=== PATIENT | female | born 1975 | race Caucasian/White ===

== ENCOUNTER 2018-09-22 14:53 | Inpatient (IN) | payer BC ==
[2018-09-23] MEDS ORDERED: Sodium Chloride 0.9% 10 ML FLUSH Syringe IV PRN (10:00)
[2018-09-23 10:30] LABS: BLOOD UREA NITROGEN 7 mg/dL (7-17); CHLORIDE 92 mmol/L (98-107); Creatinine 1 0.63 mg/dL (0.52-1.04); Glucose 88 mg/dL (74-106); SODIUM 137 mmol/L (137-145)
[2018-09-23 10:44] LABS: Carbon Dioxide 38 mmol/L (22-30)
[2018-09-23 10:47] LABS: Potassium 2.3 mmol/L (3.5-5.1)
[2018-09-23 10:48] LABS: ANION GAP 9.3 MEQ/L (5-15)
[2018-09-23] MEDS ORDERED: Sodium Chloride 0.9% 500 ML 500 ML IV SCH (11:00)
[2018-09-23] MEDS: POTASSIUM CHLORIDE 20 mEq IN WATER 100ML 100 ML IV SCH ×2 (11:10→13:12)
[2018-09-23] MEDS ORDERED: Naprosyn 500 MG PO PRN (12:15)
[2018-09-23] MEDS ORDERED: Nitrostat 0.4 MG Tablet SL PRN (12:15)
[2018-09-23] MEDS ORDERED: ZOFRAN ODT 4 MG PO PRN (12:15)
[2018-09-23] MEDS ORDERED: Ventolin Hfa MDI IH PRN (12:15)
[2018-09-23] MEDS ORDERED: PROVENTIL COMMON CANISTER IH PRN (12:42)
[2018-09-23] MEDS: Sodium Chloride 0.9% 10 ML FLUSH Syringe IV SCH ×2 (15:30→20:23)
--- NOTE | 2018-09-23 17:55 | PCM.HP ---
History of Present Illness - Chief Complaint Chief Complaint: hypokalemia History of Present Illness: is a 43 year old female pt of mine from [facility] with complicated PMHx including idiopathic peripheral neuropathy, Gregoria's thyroiditis, chronic back pain with pain stimulator implant, migraine MAYER, psychiatric issues, and chronic vomiting and diarrhea who came in for direct admission due to hypokalemia. On outpatient labs yesterday she was found to have low potassium and was advised to come in for repletion. I advised she should come in [facility] and she was supposed to come yesterday evening but she did not come until this morning. Potassium was 2.3. She was given a 40 mEq K-rider and her follow up potassium is 3.1. On 09/08/18 she was at [facility] and found to have K+ of 2.39 - was repleted and sent home on prescription potassium and magnesium. She ran out of the potassium a few weeks ago and was taking OTC potassium since then. She had a CT abd/pelvis that was negative for mass. Had fatty infiltration of the colon and recommended colonoscopy. They sent her home for OP f/u. She was referred to an horizontal resaw operator by her senior water/wastewater engineer, [employer] Rochelle Fajardo for her multiple medical issues. She has a history of vomiting up to 15-20x/day in the past 2-3 months, even with sips of liquid or taking her meds. She has lost about 20 lb. Also c/o "constant" diarrhea. She also has elham-umbilical abd pain. Does c/o bright and dark blood in the stool. Her last EGD and colonoscopy were done 2 years ago at [facility]. She also c/o syncope recently, most recently 2 nights ago when she got up and her found her on the kitchen floor. She apparently has not had any workup done for this yet. - Review of Systems Respiratory: Cough Cardiac: Edema (LE bilat) Abdominal/Gastrointestinal: Abdominal Pain, Nausea, Vomiting, Diarrhea, Hematochezia, Melena Musculoskeletal: Arthralgias, Back Pain Neurological: Parasthesia Psychological: Anxiety, Depression, No Suicidal Ideations All Other Systems: Reviewed and Negative Medications & Allergies Home Medications: Home Medication List Albuterol Sulfate [Ventolin Hfa] 18 gm IH Q4H PRN PRN 06/03/15 [History Confirmed 09/23/18] Magnesium Oxide 400 mg [Mag-Ox 400] 400 mg PO BID 06/03/15 [History Confirmed 09/23/18] Metoprolol Tartrate 25 mg PO BID 06/03/15 [History Confirmed 09/23/18] Multivit,Calc,Mins/Iron/Folic [Women's Daily Caplet] 1 each PO DAILY 06/03/15 [ History Confirmed 09/23/18] Naproxen 500 mg PO BID PRN 06/03/15 [History Confirmed 09/23/18] Nitroglycerin 0.4 mg Tablet [Nitrostat 0.4 MG Tablet] 0.4 mg SL DAILY PRN PRN 06/03/15 [History Confirmed 09/23/18] Potassium Chloride 20 Meq [Klor-Con 20 MEQ] 20 meq PO BID 06/03/15 [History Confirmed 09/23/18] Vitamin B Complex Vit C No.3 [B Complex with Vitamin C] 1 each PO DAILY [History Confirmed 09/23/18] Alprazolam 0.5 mg PO DAILY 11/10/15 [History Confirmed 09/23/18] Duloxetine HCl 30 mg [Cymbalta 30 MG Capsule] 30 mg PO DAILY 11/10/15 [ History Confirmed 09/23/18] Levothyroxine Sodium 50 Mcg [Synthroid 50 Mcg] 50 mcg PO DAILY 11/10/15 [ History Confirmed 09/23/18] Cephalexin Mh 500 mg [Keflex 500 mg] 500 mg PO BID 09/23/18 [History Confirmed 09/23/18] Dicyclomine HCl 20 mg [Bentyl 20 mg] 20 mg PO BID 09/23/18 [History Confirmed 09/23/18] Ondansetron ODT 4 MG [Zofran Odt 4 mg] 4 mg PO Q6H PRN PRN 09/23/18 [ History Confirmed 09/23/18] Allergies/Adverse Reactions: Allergies Allergy/AdvReac Type Severity Reaction Status Date / Time gabapentin Allergy Severe Verified 09/23/18 10:36 pregabalin [From Lyrica] Allergy Severe Verified 09/23/18 10:37 - Past Medical History Past Medical History: Yes Neurological History: No Pertinent History, Migraines, Peripheral Neuropathy ENT History: No Pertinent History Cardiac History: Hypertension, Other Respiratory History: Asthma Endocrine Medical History: No Pertinent History Musculoskelatal History: No Pertinent History GI Medical History: Gallbladder Disease, Ulcer History: No Pertinent History Pyscho-Social History: Anxiety Reproductive Disorders: No Pertinent History Comment: heart cath in 2014 "weakened heart muscles, IBS UTI, Nodules on lung, anemia, low potassium - Female History Are you now?: No - Past Surgical History Past Surgical History: Yes Neuro Surgical History: No Pertinent History Cardiac History: Cardiac Catheterization GI Surgical History: No Pertinent History Genitourinary Surgical Hx: No Pertinent History Musculskeletal Surgical Hx: No Pertinent History Female Surgical History: Tubal Ligation Other Surgical History: cervical CA 95, 06, tubal and ablation 2011 - Social History Smoking Status: Current every day smoker How long have you smoked: 35 Exposure to second hand smoke: Yes Alcohol: Weekly Drug Use: none - Physical Exam Vital Signs: Vital Signs - 24 hr Temp Pulse Resp BP Pulse Ox 09/23/18 17:32 98 F 09/23/18 13:34 98 F 78 18 108/64 95 09/23/18 10:24 98.3 F 94 H 20 109/84 96 09/23/18 10:03 98.3 F 94 H 20 109/84 96 General Appearance: no apparent distress, alert Neurologic Exam: oriented x 3, cooperative Eye Exam: eyes nml inspection Ears, Nose, Throat Exam: moist mucous membranes Neck Exam: normal inspection, non-tender, No lymphadenopathy Respiratory Exam: normal breath sounds, lungs clear, No crackles/rales, No rhonchi, No wheezing Cardiovascular Exam: regular rate/rhythm, normal heart sounds, No murmur Gastrointestinal/Abdomen Exam: soft, normal bowel sounds, tenderness ( generalized, worst in suprapubic/RLQ), No distention, No mass, No guarding, No rebound Back Exam: normal inspection, No rash Extremity Exam: No pedal edema, No swelling Skin Exam: normal color, warm, dry, No rash Results - Labs Lab/Micro Results: Lab Results-Last 24 Hours 09/23/18 09/23/18 Range/Units 10:10 17:28 Sodium 137 (137-145) mmol/L Potassium 2.3 L* 3.1 L D (3.5-5.1) mmol/L Chloride 92 L (98-107) mmol/L Carbon Dioxide 38 H (22-30) mmol/L Anion Gap 9.3 (5-15) MEQ/L BUN 7 (7-17) mg/dL Creatinine 0.63 (0.52-1.04) mg/dL Estimated GFR > 60.0 ML/MIN Glucose 88 (74-106) mg/dL Calcium 8.0 L (8.4-10.2) mg/dL Magnesium 1.7 (1.6-2.3) mg/dL - Other Procedures and Tests Respiratory Therapy 09/23/18 10:49 Smoking Cessation Education ONCE Assessment/Plan (1) Hypokalemia Current Visit: Yes Status: Acute Onset Date: ~09/23/18 Assessment & Plan: acute on chronic. Better, but will replete with IV potassium as she will be getting a colon prep tomorrow. recheck Mg post Code(s): E87.6 - HYPOKALEMIA (2) Syncope Current Visit: Yes Status: Acute Qualifiers: Encounter type: initial encounter Assessment & Plan: will start with echo and carotid dopplers if she has not had in the past 6 mo ( for echo; 12 mo for carotid dopplers). Can't have MRi of the brain due to stimulator. Will order CT brain w/ and w/o contrast. Code(s): R55 - SYNCOPE AND COLLAPSE (3) Idiopathic peripheral neuropathy Current Visit: Yes Status: Chronic Code(s): G60.9 - HEREDITARY AND IDIOPATHIC NEUROPATHY, UNSPECIFIED (4) HTN (hypertension) Current Visit: Yes Status: Chronic Qualifiers: Hypertension type: essential hypertension Qualified Code(s): I10 - Essential (primary) hypertension Code(s): I10 - ESSENTIAL (PRIMARY) HYPERTENSION (5) Migraine Current Visit: Yes Status: Chronic Qualifiers: Migraine type: unspecified Status migrainosus presence: without status migrainosus Intractability: not intractable Qualified Code(s): G43.909 - Migraine, unspecified, not intractable, without status migrainosus Code(s): G43.909 - MIGRAINE, UNSP, NOT INTRACTABLE, WITHOUT STATUS MIGRAINOSUS (6) Tobacco use Current Visit: Yes Status: Chronic Assessment & Plan: nicoderm patch today Code(s): Z72.0 - TOBACCO USE (7) Chronic back pain Current Visit: Yes Status: Chronic Qualifiers: Back pain location: back pain in unspecified location Back pain laterality : unspecified Qualified Code(s): M54.9 - Dorsalgia, unspecified; G89.29 - Other chronic pain Code(s): M54.9 - DORSALGIA, UNSPECIFIED; G89.29 - OTHER CHRONIC PAIN (8) Depression Current Visit: Yes Status: Chronic Qualifiers: Depression Type: unspecified Qualified Code(s): F32.9 - Major depressive disorder, single episode, unspecified Code(s): F32.9 - MAJOR DEPRESSIVE DISORDER, SINGLE EPISODE, UNSPECIFIED (9) Hypothyroid Current Visit: Yes Status: Chronic Qualifiers: Hypothyroidism type: due to Gregoria's thyroiditis Qualified Code(s): E03.8 - Other specified hypothyroidism; E06.3 - Autoimmune thyroiditis Code(s): E03.9 - HYPOTHYROIDISM, UNSPECIFIED (10) Vomiting Current Visit: Yes Status: Acute Qualifiers: Vomiting type: unspecified Nausea presence: with nausea Assessment & Plan: EGD Code(s): R11.10 - VOMITING, UNSPECIFIED (11) Diarrhea Current Visit: Yes Status: Acute Qualifiers: Diarrhea type: unspecified type Qualified Code(s): R19.7 - Diarrhea, unspecified Assessment & Plan: stool studies and colonoscopy Code(s): R19.7 - DIARRHEA, UNSPECIFIED
[2018-09-23] MEDS ORDERED: POTASSIUM CHLORIDE 20 mEq IN WATER 100ML 20 MEQ/100 ML BAG IV ONE (18:06)
[2018-09-23] MEDS: NICODERM CQ 14 MG TOP SCH (18:14)
[2018-09-23] MEDS: BENTYL 20 MG PO SCH (20:19)
[2018-09-23] MEDS: Lopressor 25MG Tab PO SCH (20:19)
[2018-09-23] MEDS: KEFLEX 500 MG PO SCH (20:19)
[2018-09-23] MEDS: Klor Con 10 MEQ PO SCH (20:20)
[2018-09-23] MEDS: MAG-OX 400 PO SCH (20:20)
[2018-09-23] MEDS: Cymbalta 30 MG Capsule PO SCH (20:46)
[2018-09-23] MEDS: Desyrel 150 MG PO SCH (20:46)
[2018-09-23] MEDS: ULTRAM 50 MG PO PRN (20:47)
[2018-09-23] MEDS: XANAX 1 MG PO PRN (20:47)
[2018-09-23] MEDS ORDERED: BENTYL 20 MG PO SCH (22:00)
[2018-09-23] MEDS ORDERED: KEFLEX 500 MG PO SCH (22:00)
[2018-09-23] MEDS ORDERED: NON-FORMULARY ITEM (Potassium Chloride 20 Meq [Klor-Con 20 Meq] 20 MEQ) PO SCH (22:00)
[2018-09-23] MEDS ORDERED: Cymbalta 30 MG Capsule PO SCH (22:00)
[2018-09-23 22:31] LABS: Appearance CLOUDY (CLEAR); Bilirubin NEGATIVE (NEGATIVE); Blood SMALL Ery/ul (0-5); Glucose NEGATIVE (NEGATIVE); Ketones NEGATIVE (NEGATIVE); Leukocyte Esterase SMALL (NEGATIVE); Nitrite NEGATIVE (NEGATIVE); Protein,Urine Dip NEGATIVE (Negative); Specific Gravity 1.005 (1.005-1.025); Urobilinogen 4 mg/dL (0-1)
[2018-09-23] MEDS ORDERED: Klor Con 10 MEQ PO ONE (23:20)
[2018-09-23] MEDS: Sodium Chloride 0.9% W/ 20 mEq KCl/LITER 1,000 ML IV SCH (23:38)
[2018-09-24 05:27] LABS: BASOPHIL % 0.7 % (0.0-0.4); Basophil (Absolute #) 0.03 (0-0.4); Eosinophil % 1.1 % (0.00-5.0); Eosinophil (Absolute #) 0.05 (0-0.5); Granulocyte Absolute (ANC) 1.73 (1.4-6.9); Granulocytes % 39.6 % (36.0-66.0); Hematocrit 30.2 % (35-47); Hemoglobin 10.1 gm/dl (12.0-16.0); Lymphocyte (Absolute #) 2.21 (1.0-4.6); Lymphocytes % 50.6 % (24.0-44.0); Mean Cell Volume 105.2 fl (78-100); Mean Corpuscular Hgb Concent. 33.4 g/dl (32-36); Monocyte (Absolute #) 0.35 (0.0-1.3); Platelet Count 195 K/mm3 (150-450); Red Blood Count 2.87 M/mm3 (4.1-5.4); Red Cell Distribution Width 11.9 % (11.5-14.0); White Blood Count 4.4 K/mm3 (4.0-10.5)
[2018-09-24 05:31] LABS: Mean Corpuscular Hemoglobin 35.1 pg (26-32)
[2018-09-24 05:46] LABS: ALKALINE PHOSPHATASE 137 U/L (38-126); BLOOD UREA NITROGEN 4 mg/dL (7-17); CHLORIDE 101 mmol/L (98-107); Calcium 7.4 mg/dL (8.4-10.2); Carbon Dioxide 34 mmol/L (22-30); Creatinine 1 0.55 mg/dL (0.52-1.04); Glucose 94 mg/dL (74-106); Potassium 3.3 mmol/L (3.5-5.1); SGOT/AST 111 U/L (14-36); SGPT/ALT 43 U/L (0-35); SODIUM 136 mmol/L (137-145); Total Protein 4.6 g/dL (6.3-8.2)
[2018-09-24] MEDS: Sodium Chloride 0.9% 10 ML FLUSH Syringe IV SCH ×3 (05:48→22:05)
--- NOTE | 2018-09-24 08:57 | PCM.NOTE ---
Date and Time: 09/24/18 0854 Subjective Assessment: Pt is feeling better. No vomiting since admission but did have diarrhea. her K + this a.m. was 3.3. Mendy po. - Review of Systems Constitutional: No Fever Abdominal/Gastrointestinal: Diarrhea, No Vomiting Objective Exam General Appearance: no apparent distress, alert Neurologic Exam: oriented x 3, cooperative Skin Exam: normal color, warm, dry, No rash Ears, Nose, Throat Exam: moist mucous membranes Neck Exam: normal inspection Respiratory Exam: normal breath sounds, lungs clear, No crackles/rales, No rhonchi, No wheezing Cardiovascular Exam: regular rate/rhythm, normal heart sounds, No murmur Gastrointestinal/Abdomen Exam: soft, normal bowel sounds, No tenderness, No distention, No mass, No guarding, No rebound OBJECTIVE DATA Vital Signs: Vital Signs - 24 hr Temp Pulse Resp BP Pulse Ox 09/24/18 07:32 96 09/24/18 07:00 98 F 87 18 110/65 95 09/24/18 04:00 16 09/24/18 03:00 98.1 F 78 12 108/58 91 L 09/24/18 00:00 18 09/23/18 23:00 98.3 F 74 18 115/69 94 L 09/23/18 21:06 97 09/23/18 21:01 93 H 18 97 09/23/18 20:00 18 09/23/18 19:31 98.3 F 82 18 109/76 96 09/23/18 18:02 90 16 96 09/23/18 17:32 98 F 09/23/18 13:34 98 F 78 18 108/64 95 09/23/18 10:24 98.3 F 94 H 20 109/84 96 09/23/18 10:03 98.3 F 94 H 20 109/84 96 Pain Assessment - Last Documented Pain Intensity 2 Pain Scale Used 0-10 Pain Scale Intake and Output: Intake & Output 09/21/18 09/22/18 09/23/18 09/24/18 11:59 11:59 11:59 11:59 Intake Total 1838 Output Total 1800 Balance 38 Weight 54.1 kg Lab Results: Lab Results-Last 24 Hours 09/23/18 09/23/18 09/23/18 Range/Units 10:10 17:25 17:28 WBC (4.0-10.5) K/mm3 RBC (4.1-5.4) M/mm3 Hgb (12.0-16.0) gm/dl Hct (35-47) % MCV (78-100) fl MCH (26-32) pg MCHC (32-36) g/dl RDW (11.5-14.0) % Plt Count (150-450) K/mm3 MPV (6-9.5) fl Gran % (36.0-66.0) % Eos # (Auto) (0-0.5) Absolute Lymphs (auto) (1.0-4.6) Absolute Monos (auto) (0.0-1.3) Lymphocytes % (24.0-44.0) % Monocytes % (0.0-12.0) % Eosinophils % (0.00-5.0) % Basophils % (0.0-0.4) % Absolute Granulocytes (1.4-6.9) Basophils # (0-0.4) Sodium 137 (137-145) mmol/L Potassium 2.3 L* 3.1 L D (3.5-5.1) mmol/L Chloride 92 L (98-107) mmol/L Carbon Dioxide 38 H (22-30) mmol/L Anion Gap 9.3 (5-15) MEQ/L BUN 7 (7-17) mg/dL Creatinine 0.63 (0.52-1.04) mg/dL Estimated GFR > 60.0 ML/MIN Glucose 88 (74-106) mg/dL Calcium 8.0 L (8.4-10.2) mg/dL Magnesium 1.7 1.7 (1.6-2.3) mg/dL Total Bilirubin (0.2-1.3) mg/dL AST (14-36) U/L ALT (0-35) U/L Alkaline Phosphatase (38-126) U/L Serum Total Protein (6.3-8.2) g/dL Albumin (3.5-5.0) g/dL Urine Color (YELLOW) Urine Appearance (CLEAR) Urine pH (5-6) Ur Specific [place] (1.005-1.025) Urine Protein (Negative) Urine Ketones (NEGATIVE) Urine Blood (0-5) Chris/ul Urine Nitrite (NEGATIVE) Urine Bilirubin (NEGATIVE) Urine Urobilinogen (0-1) mg/dL Ur Leukocyte Esterase (NEGATIVE) Urine WBC (Auto) (0-5) /HPF Urine RBC (Auto) (0-2) /HPF U Epithel Cells (Auto) (FEW) /HPF Urine Bacteria (Auto) (NEGATIVE) /HPF Other Casts (Auto) (NEGATIVE) /LPF Urine Culture Reflexed (NO) Urine Glucose (NEGATIVE) mg/dL 09/23/18 09/23/18 09/24/18 Range/Units 21:45 22:45 05:06 WBC 4.4 (4.0-10.5) K/mm3 RBC 2.87 L (4.1-5.4) M/mm3 Hgb 10.1 L (12.0-16.0) gm/dl Hct 30.2 L (35-47) % MCV 105.2 H (78-100) fl MCH 35.1 H (26-32) pg MCHC 33.4 (32-36) g/dl RDW 11.9 (11.5-14.0) % Plt Count 195 (150-450) K/mm3 MPV 10.0 H (6-9.5) fl Gran % 39.6 (36.0-66.0) % Eos # (Auto) 0.05 (0-0.5) Absolute Lymphs (auto) 2.21 (1.0-4.6) Absolute Monos (auto) 0.35 (0.0-1.3) Lymphocytes % 50.6 H (24.0-44.0) % Monocytes % 8.0 (0.0-12.0) % Eosinophils % 1.1 (0.00-5.0) % Basophils % 0.7 (0.0-0.4) % Absolute Granulocytes 1.73 (1.4-6.9) Basophils # 0.03 (0-0.4) Sodium (137-145) mmol/L Potassium 3.1 L (3.5-5.1) mmol/L Chloride (98-107) mmol/L Carbon Dioxide (22-30) mmol/L Anion Gap (5-15) MEQ/L BUN (7-17) mg/dL Creatinine (0.52-1.04) mg/dL Estimated GFR ML/MIN Glucose (74-106) mg/dL Calcium (8.4-10.2) mg/dL Magnesium (1.6-2.3) mg/dL Total Bilirubin (0.2-1.3) mg/dL AST (14-36) U/L ALT (0-35) U/L Alkaline Phosphatase (38-126) U/L Serum Total Protein (6.3-8.2) g/dL Albumin (3.5-5.0) g/dL Urine Color YELLOW (YELLOW) Urine Appearance CLOUDY (CLEAR) Urine pH 7.0 (5-6) Ur Specific [place] 1.005 (1.005-1.025) Urine Protein NEGATIVE (Negative) Urine Ketones NEGATIVE (NEGATIVE) Urine Blood SMALL (0-5) Chris/ul Urine Nitrite NEGATIVE (NEGATIVE) Urine Bilirubin NEGATIVE (NEGATIVE) Urine Urobilinogen 4 (0-1) mg/dL Ur Leukocyte Esterase SMALL (NEGATIVE) Urine WBC (Auto) 26-50 (0-5) /HPF Urine RBC (Auto) 11-15 (0-2) /HPF U Epithel Cells (Auto) MODERATE (FEW) /HPF Urine Bacteria (Auto) MODERATE (NEGATIVE) /HPF Other Casts (Auto) 2-5 (NEGATIVE) /LPF Urine Culture Reflexed YES (NO) Urine Glucose NEGATIVE (NEGATIVE) mg/dL 09/24/18 09/24/18 Range/Units 05:06 05:06 WBC (4.0-10.5) K/mm3 RBC (4.1-5.4) M/mm3 Hgb (12.0-16.0) gm/dl Hct (35-47) % MCV (78-100) fl MCH (26-32) pg MCHC (32-36) g/dl RDW (11.5-14.0) % Plt Count (150-450) K/mm3 MPV (6-9.5) fl Gran % (36.0-66.0) % Eos # (Auto) (0-0.5) Absolute Lymphs (auto) (1.0-4.6) Absolute Monos (auto) (0.0-1.3) Lymphocytes % (24.0-44.0) % Monocytes % (0.0-12.0) % Eosinophils % (0.00-5.0) % Basophils % (0.0-0.4) % Absolute Granulocytes (1.4-6.9) Basophils # (0-0.4) Sodium 136 L (137-145) mmol/L Potassium 3.3 L (3.5-5.1) mmol/L Chloride 101 (98-107) mmol/L Carbon Dioxide 34 H (22-30) mmol/L Anion Gap 4.0 L (5-15) MEQ/L BUN 4 L (7-17) mg/dL Creatinine 0.55 (0.52-1.04) mg/dL Estimated GFR > 60.0 ML/MIN Glucose 94 (74-106) mg/dL Calcium 7.4 L (8.4-10.2) mg/dL Magnesium 1.8 (1.6-2.3) mg/dL Total Bilirubin 0.80 (0.2-1.3) mg/dL AST 111 H (14-36) U/L ALT 43 H (0-35) U/L Alkaline Phosphatase 137 H (38-126) U/L Serum Total Protein 4.6 L (6.3-8.2) g/dL Albumin 2.0 L (3.5-5.0) g/dL Urine Color (YELLOW) Urine Appearance (CLEAR) Urine pH (5-6) Ur Specific [place] (1.005-1.025) Urine Protein (Negative) Urine Ketones (NEGATIVE) Urine Blood (0-5) Chris/ul Urine Nitrite (NEGATIVE) Urine Bilirubin (NEGATIVE) Urine Urobilinogen (0-1) mg/dL Ur Leukocyte Esterase (NEGATIVE) Urine WBC (Auto) (0-5) /HPF Urine RBC (Auto) (0-2) /HPF U Epithel Cells (Auto) (FEW) /HPF Urine Bacteria (Auto) (NEGATIVE) /HPF Other Casts (Auto) (NEGATIVE) /LPF Urine Culture Reflexed (NO) Urine Glucose (NEGATIVE) mg/dL Radiology Exams: Radiology Procedures Category Date Time Status CAROTID BILATERAL [US] Routine Exams 09/24/18 Ordered ECHO W/2D AND DOPPLER [US] Routine Exams 09/24/18 Ordered HEAD W/WO CONTRAST [CT] Routine Exams 09/24/18 18:06 Ordered Assessment/Plan (1) Hypokalemia Current Visit: Yes Status: Acute Onset Date: ~09/23/18 Assessment & Plan: Improved. Will need new rx when discharged home (for potassium) Code(s): E87.6 - HYPOKALEMIA (2) Syncope Current Visit: Yes Status: Acute Qualifiers: Qualified Code(s): T67.1XXA - Heat syncope, initial encounter Assessment & Plan: Getting head CT, echo,and carotid doppler today. Code(s): R55 - SYNCOPE AND COLLAPSE (3) Idiopathic peripheral neuropathy Current Visit: Yes Status: Chronic Code(s): G60.9 - HEREDITARY AND IDIOPATHIC NEUROPATHY, UNSPECIFIED (4) HTN (hypertension) Current Visit: Yes Status: Chronic Qualifiers: Qualified Code(s): I10 - Essential (primary) hypertension Code(s): I10 - ESSENTIAL (PRIMARY) HYPERTENSION (5) Migraine Current Visit: Yes Status: Chronic Qualifiers: Qualified Code(s): G43.909 - Migraine, unspecified, not intractable, without status migrainosus Code(s): G43.909 - MIGRAINE, UNSP, NOT INTRACTABLE, WITHOUT STATUS MIGRAINOSUS (6) Tobacco use Current Visit: Yes Status: Chronic Code(s): Z72.0 - TOBACCO USE (7) Chronic back pain Current Visit: Yes Status: Chronic Qualifiers: Qualified Code(s): M54.9 - Dorsalgia, unspecified; G89.29 - Other chronic pain Code(s): M54.9 - DORSALGIA, UNSPECIFIED; G89.29 - OTHER CHRONIC PAIN (8) Depression Current Visit: Yes Status: Chronic Qualifiers: Qualified Code(s): F32.9 - Major depressive disorder, single episode, unspecified Code(s): F32.9 - MAJOR DEPRESSIVE DISORDER, SINGLE EPISODE, UNSPECIFIED (9) Hypothyroid Current Visit: Yes Status: Chronic Qualifiers: Qualified Code(s): E03.8 - Other specified hypothyroidism; E06.3 - Autoimmune thyroiditis Code(s): E03.9 - HYPOTHYROIDISM, UNSPECIFIED (10) Vomiting Current Visit: Yes Status: Acute Assessment & Plan: EGD tomorrow with surgery, thank you. Code(s): R11.10 - VOMITING, UNSPECIFIED (11) Diarrhea Current Visit: Yes Status: Acute Qualifiers: Qualified Code(s): R19.7 - Diarrhea, unspecified Assessment & Plan: colonoscopy tomorrow with surgery, thank you. Stool studies ordered. Code(s): R19.7 - DIARRHEA, UNSPECIFIED
[2018-09-24] MEDS: SYNTHROID 100 MCG PO SCH (09:39)
[2018-09-24] MEDS ORDERED: xanAX 0.5 MG PO SCH (10:00)
[2018-09-24] MEDS ORDERED: SYNTHROID 50 MCG PO SCH (10:00)
[2018-09-24] MEDS ORDERED: FLUZONE QUAD (36mo-64yo) 2018-2019 SYRINGE IM ONE (10:00)
--- NOTE | 2018-09-24 10:21 | XRAY ---
Indication: Headache and syncope. Multiple contiguous axial images obtained through the head prior to and following 80 cc Isovue 370 contrast. Comparison: None Ventriculosulcal pattern appears symmetric. No acute intracranial hemorrhage, abnormal extra-axial fluid collection, or mass effect. Following contrast, there is no abnormal enhancing intra or extra-axial mass. Fourth ventricle is midline without hydrocephalus. Garcia white matter differentiation preserved. Bony calvarium intact. Visualized paranasal sinuses and mastoid air cells are clear. Impression: Negative CT head with and without contrast exam. CT DI 71.08
--- NOTE | 2018-09-24 10:35 | XRAY ---
Indication: Syncope. Two-dimensional sonogram and color Doppler imaging of the carotid arteries of the neck performed. Comparison: None Examination of the right carotid circulation demonstrates widely patent common carotid, bulb, internal carotid, and external carotid arteries. PSV of the CCA is 95 cm/s. PSV of the ICA is 112 cm/s. ICA/CCA ratio is 1.2. Normal antegrade vertebral artery flow. Examination of left carotid circulation also demonstrates widely patent common carotid, bulb, internal carotid, and external carotid arteries. PSV of the CCA is 132 cm/s. PSV of the ICA is 118 cm/s. ICA/CCA ratio is 0.9. Normal antegrade vertebral artery flow. Impression: Widely patent left and right carotid arteries of the neck. Velocity measurements and ratios are also negative for hemodynamically significant flow-limiting stenosis.
[2018-09-24] MEDS: Klor Con 10 MEQ PO SCH ×2 (10:46→22:04)
[2018-09-24] MEDS: MAG-OX 400 PO SCH ×2 (10:47→22:05)
[2018-09-24] MEDS: BENTYL 20 MG PO SCH ×2 (10:47→22:03)
[2018-09-24] MEDS: Lopressor 25MG Tab PO SCH ×2 (10:47→22:05)
[2018-09-24] MEDS: KEFLEX 500 MG PO SCH ×2 (10:47→22:04)
[2018-09-24] MEDS: XANAX 1 MG PO PRN ×2 (10:52→22:05)
[2018-09-24] MEDS ORDERED: Golytely Solution 4000 ML PO ONE (14:00)
[2018-09-24] MEDS: Sodium Chloride 0.9% W/ 20 mEq KCl/LITER 1,000 ML IV SCH (16:29)
[2018-09-24] MEDS: NICODERM CQ 14 MG TOP SCH (22:00)
[2018-09-24] MEDS: Desyrel 150 MG PO SCH (22:04)
[2018-09-24] MEDS: Cymbalta 30 MG Capsule PO SCH (22:04)
[2018-09-24] MEDS: ULTRAM 50 MG PO PRN (22:05)
[2018-09-24] MEDS ORDERED: Lactated Ringers 1,000 ML IV SCH (23:30)
[2018-09-25] MEDS: Sodium Chloride 0.9% W/ 20 mEq KCl/LITER 1,000 ML IV SCH (01:13)
[2018-09-25] MEDS: Sodium Chloride 0.9% 10 ML FLUSH Syringe IV SCH ×2 (05:34→17:39)
--- NOTE | 2018-09-25 07:48 | CONS ---
CONSULT DATE: 09/24/2018 HISTORY: The patient is a 43 year-old female who has had nausea, vomiting, diarrhea since June. She had extensive work up in [place]. She reportedly said she had some sludge at one point. I have the report in front of me now. She has not had a HIDA scan. She comes in with some persistent nausea, vomiting and diarrhea. Dr. Blank asked for our group to see her for possible endoscopy. She had a CT scan show no evidence of mass, fatty infiltration of colon wall especially in the right colon, possible inflammatory bowel disease in the differential. Colonoscopy recommended that was done back in August. Ultrasound reportedly showed some sludge, no gallstones. PAST MEDICAL HISTORY: She has had some anxiety, smoker. She has had fatigue. She has history of panic attacks, iron deficiency in the past. PAST SURGICAL HISTORY: She had tubal in the past. She had ablation. She had a cervix procedure in the past. MEDICATIONS: Multivitamins, Bentyl, trazodone, Synthroid, Ventolin for chronic obstructive pulmonary disease, vitamin B12, ferrous sulfate, metoprolol, Nitro PRN, alprazolam, duloxetine, magnesium oxide. ALLERGIES: GABAPENTIN, LYRICA. FAMILY HISTORY: Negative in regards to this problem. SOCIAL HISTORY: Smoker. LAB DATA AND TESTS: Bilirubin 0.8, alkaline phosphatase 137, ALT 43, AST 111. White blood cell count 4.4, hemoglobin 10.1, PLT 195,000. REVIEW OF SYSTEMS: Twelve systems reviewed per admission assessment. No chest pain or palpitations other systems negative or noncontributory as above and per preadmission questionnaire. PHYSICAL EXAMINATION: GENERAL: No acute distress. HEENT: Sclera nonicteric. NECK: No JVD. CHEST: Equal excursion, nonlabored breathing. CVS: Regular rate and rhythm. ABDOMEN: Soft. No peritoneal signs. Nontender on my exam. EXTREMITIES: No significant edema. NEURO: Alert, moving extremities grossly symmetrically. No gross motor deficits noted. IMPRESSION: History of some nausea, vomiting, diarrhea unclear etiology. She did have old fatty infiltration of the colon on CT scan. She does have some sludge on ultrasound of the gallbladder. HIDA was not done. I feel she would benefit from EGD and colonoscopy. She said she has history of ulcers and polyps in the past. She had prior endoscopy by Dr. Earl Garcia in the past. If the upper and lower endoscopy is unremarkable might need to consider HIDA scan for further work up. Either way no emergent surgery necessary. She is given bowel prep today. Dr. Watts is available to do EGD and colonoscopy on her tomorrow. General risk of bleeding or infection, risk of bowel injury or perforation possible requiring open procedure, risk of missed or nondiagnosis or incomplete exam possibly requiring barium enema, other studies or procedures. General risk of anesthesia or sedation but not limited to. PLAN: EGD and colonoscopy tomorrow. If unremarkable consider HIDA scan.
[2018-09-25 09:56] LABS: Hematocrit 30.5 % (35-47); Mean Cell Volume 107.8 fl (78-100); Mean Corpuscular Hemoglobin 35.3 pg (26-32); Mean Corpuscular Hgb Concent. 32.8 g/dl (32-36); Mean Platelet Volume 10.6 fl (6-9.5); Platelet Count 203 K/mm3 (150-450); Red Blood Count 2.83 M/mm3 (4.1-5.4); Red Cell Distribution Width 12.4 % (11.5-14.0); White Blood Count 3.4 K/mm3 (4.0-10.5)
[2018-09-25] MEDS ORDERED: Lactated Ringers 1,000 ML IV SCH (12:00)
[2018-09-25 12:02] LABS: CHLORIDE 110 mmol/L (98-107); Calcium 7.2 mg/dL (8.4-10.2); Carbon Dioxide 27 mmol/L (22-30); Creatinine 1 0.52 mg/dL (0.52-1.04); Glucose 80 mg/dL (74-106); SODIUM 139 mmol/L (137-145)
[2018-09-25 12:05] LABS: BLOOD UREA NITROGEN 2 mg/dL (7-17)
--- NOTE | 2018-09-25 14:44 | PCM.NOTE ---
Date and Time: 09/25/18 1441 Subjective Assessment: Last night she had hypotension into the 70s systolic which resolved with a bolus of IV fluid. Pt feeling better. Denies any abd pain. Did colon prep yesterday, awaiting EGD and colonoscopy today. - Review of Systems Constitutional: No Fever Abdominal/Gastrointestinal: No Abdominal Pain Objective Exam General Appearance: no apparent distress, alert Neurologic Exam: oriented x 3, cooperative Skin Exam: normal color, warm, dry, No rash Ears, Nose, Throat Exam: moist mucous membranes Neck Exam: normal inspection Respiratory Exam: normal breath sounds, lungs clear, No crackles/rales, No rhonchi, No wheezing Cardiovascular Exam: regular rate/rhythm, normal heart sounds, No murmur Gastrointestinal/Abdomen Exam: soft, normal bowel sounds, No tenderness, No distention, No mass, No guarding, No rebound Extremity Exam: No pedal edema, No swelling OBJECTIVE DATA Vital Signs: Vital Signs - 24 hr Temp Pulse Resp BP Pulse Ox 09/25/18 12:00 98.4 F 72 16 104/63 96 09/25/18 11:41 98.4 F 72 14 101/57 96 09/25/18 08:00 18 09/25/18 07:41 98.3 F 68 13 101/57 93 L 09/25/18 07:21 94 L 09/25/18 04:00 98.3 F 73 16 91/51 92 L 09/25/18 00:00 16 79/53 09/24/18 23:00 98.2 F 84 16 73/46 93 L 09/24/18 20:00 16 09/24/18 19:00 97.4 F 68 16 119/73 96 09/24/18 18:25 67 19 99 09/24/18 15:00 98.6 F 58 L 18 108/75 96 Pain Assessment - Last Documented Pain Intensity 0 Pain Scale Used 0-10 Pain Scale Intake and Output: Intake & Output 09/23/18 09/24/18 09/25/18 09/26/18 11:59 11:59 11:59 11:59 Intake Total 2318 7491 Output Total 1800 900 Balance 518 6591 Weight 54.1 kg 54.1 kg 54.1 kg Lab Results: Lab Results-Last 24 Hours 09/24/18 09/24/18 09/25/18 Range/Units 18:14 23:22 09:43 WBC 3.4 L (4.0-10.5) K/mm3 RBC 2.83 L (4.1-5.4) M/mm3 Hgb 10.0 L (12.0-16.0) gm/dl Hct 30.5 L (35-47) % MCV 107.8 H (78-100) fl MCH 35.3 H (26-32) pg MCHC 32.8 (32-36) g/dl RDW 12.4 (11.5-14.0) % Plt Count 203 (150-450) K/mm3 MPV 10.6 H (6-9.5) fl Sodium (137-145) mmol/L Potassium (3.5-5.1) mmol/L Chloride (98-107) mmol/L Carbon Dioxide (22-30) mmol/L Anion Gap (5-15) MEQ/L BUN (7-17) mg/dL Creatinine (0.52-1.04) mg/dL Estimated GFR ML/MIN Glucose (74-106) mg/dL Calcium (8.4-10.2) mg/dL Troponin I 0.019 0.016 (0.000-0.034) ng/mL 09/25/18 Range/Units 09:43 WBC (4.0-10.5) K/mm3 RBC (4.1-5.4) M/mm3 Hgb (12.0-16.0) gm/dl Hct (35-47) % MCV (78-100) fl MCH (26-32) pg MCHC (32-36) g/dl RDW (11.5-14.0) % Plt Count (150-450) K/mm3 MPV (6-9.5) fl Sodium 139 (137-145) mmol/L Potassium 4.0 D (3.5-5.1) mmol/L Chloride 110 H (98-107) mmol/L Carbon Dioxide 27 (22-30) mmol/L Anion Gap 6.0 (5-15) MEQ/L BUN 2 L (7-17) mg/dL Creatinine 0.52 (0.52-1.04) mg/dL Estimated GFR > 60.0 ML/MIN Glucose 80 (74-106) mg/dL Calcium 7.2 L (8.4-10.2) mg/dL Troponin I (0.000-0.034) ng/mL Radiology Exams: Radiology Procedures Category Date Time Status CAROTID BILATERAL [US] Routine Exams 09/24/18 09:19 Completed ECHO W/2D AND DOPPLER [US] Routine Exams 09/24/18 09:20 Taken HEAD W/WO CONTRAST [CT] Routine Exams 09/24/18 18:06 Completed Assessment/Plan (1) Hypokalemia Current Visit: Yes Status: Acute Onset Date: ~09/23/18 Assessment & Plan: Rechecking today. Code(s): E87.6 - HYPOKALEMIA (2) Syncope Current Visit: Yes Status: Acute Qualifiers: Encounter type: initial encounter Assessment & Plan: Would like pt to f/u with cardiology outpatient and have a tilt table likely. She thinks her syncope has been related to abd pain and diarrhea in the past. Code(s): R55 - SYNCOPE AND COLLAPSE (3) Idiopathic peripheral neuropathy Current Visit: Yes Status: Chronic Code(s): G60.9 - HEREDITARY AND IDIOPATHIC NEUROPATHY, UNSPECIFIED (4) HTN (hypertension) Current Visit: Yes Status: Chronic Qualifiers: Hypertension type: essential hypertension Qualified Code(s): I10 - Essential (primary) hypertension Code(s): I10 - ESSENTIAL (PRIMARY) HYPERTENSION (5) Migraine Current Visit: Yes Status: Chronic Qualifiers: Migraine type: unspecified Status migrainosus presence: without status migrainosus Intractability: not intractable Qualified Code(s): G43.909 - Migraine, unspecified, not intractable, without status migrainosus Code(s): G43.909 - MIGRAINE, UNSP, NOT INTRACTABLE, WITHOUT STATUS MIGRAINOSUS (6) Tobacco use Current Visit: Yes Status: Chronic Code(s): Z72.0 - TOBACCO USE (7) Chronic back pain Current Visit: Yes Status: Chronic Qualifiers: Back pain location: back pain in unspecified location Back pain laterality : unspecified Qualified Code(s): M54.9 - Dorsalgia, unspecified; G89.29 - Other chronic pain Code(s): M54.9 - DORSALGIA, UNSPECIFIED; G89.29 - OTHER CHRONIC PAIN (8) Depression Current Visit: Yes Status: Chronic Qualifiers: Depression Type: unspecified Qualified Code(s): F32.9 - Major depressive disorder, single episode, unspecified Code(s): F32.9 - MAJOR DEPRESSIVE DISORDER, SINGLE EPISODE, UNSPECIFIED (9) Hypothyroid Current Visit: Yes Status: Chronic Qualifiers: Hypothyroidism 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
[2018-09-25] MEDS: NICODERM CQ 14 MG TOP SCH (16:50)
[2018-09-25] MEDS ORDERED: ROCEPHIN 1 Gm-D5w 50 ml Bag** 1 G/50 ML IVPB IV SCH (17:08)
[2018-09-25] MEDS: MAG-OX 400 PO SCH (17:38)
[2018-09-25] MEDS: BENTYL 20 MG PO SCH (17:38)
[2018-09-25] MEDS: SYNTHROID 100 MCG PO SCH (17:38)
[2018-09-25] MEDS: Lopressor 25MG Tab PO SCH (17:38)
[2018-09-25] MEDS: Klor Con 10 MEQ PO SCH (17:38)
--- NOTE | 2018-09-25 18:39 | PCM.DS ---
Discharge Summary Date of Admission: 09/23/18 10:10 Admitting Physician: JUSTUS ALFARO Consults: Consults on Case 09/23/18 18:05 Consult Surgery ROUTINE Primary Care Provider: JUSTUS ALFARO Allergies Allergies gabapentin Allergy (Severe, Verified 09/23/18 10:36) swell up pregabalin [From Lyrica] Allergy (Severe, Verified 09/23/18 10:37) Swell, and jaundice Hospital Summary - Hospital Course Hospital Course: Pt is 43 yo pt of mine from [facility] with multiple medical issues who was admitted 2d ago for hypokalemia. She had been out of her prescription potassium and was taking an OTC supplement. She also complained of syncope and chronic vomiting and diarrhea. Potassium ws normalized. Head CT was negative. Carotid dopplers were normal and echocardiogram is pending. She had an EGD and colonoscopy today, and the official report is pending but she had GERD, mucous secretions with question of possible Crohn's disease, and biopsies pending. Pt' s urine culture was also positive today and she was given 1g rocephin IM and will be sent home on macrobid 100mg 1 po BID x 6 more days (start 09/26/18), a PPI, and her potassium supplement. - Vitals & Intake/Output Vital Signs: Vital Signs Temperature 98.2 F 09/25/18 17:35 Pulse Rate 68 09/25/18 17:35 Respiratory Rate 20 09/25/18 17:35 Blood Pressure 126/76 09/25/18 17:35 O2 Sat by Pulse Oximetry 98 09/25/18 17:35 Intake & Output: Intake & Output 09/23/18 09/24/18 09/25/18 09/26/18 11:59 11:59 11:59 11:59 Intake Total 2318 7491 120 Output Total 1800 900 Balance 518 6591 120 Weight 54.1 kg 54.1 kg 54.1 kg - Lab Result Diagrams: 09/25/18 09:43 09/25/18 09:43 Lab Results-Last 24 Hrs: Lab Results-Last 24 Hours 09/24/18 09/24/18 09/25/18 Range/Units 18:14 23:22 09:43 WBC 3.4 L (4.0-10.5) K/mm3 RBC 2.83 L (4.1-5.4) M/mm3 Hgb 10.0 L (12.0-16.0) gm/dl Hct 30.5 L (35-47) % MCV 107.8 H (78-100) fl MCH 35.3 H (26-32) pg MCHC 32.8 (32-36) g/dl RDW 12.4 (11.5-14.0) % Plt Count 203 (150-450) K/mm3 MPV 10.6 H (6-9.5) fl Sodium (137-145) mmol/L Potassium (3.5-5.1) mmol/L Chloride (98-107) mmol/L Carbon Dioxide (22-30) mmol/L Anion Gap (5-15) MEQ/L BUN (7-17) mg/dL Creatinine (0.52-1.04) mg/dL Estimated GFR ML/MIN Glucose (74-106) mg/dL Calcium (8.4-10.2) mg/dL Troponin I 0.019 0.016 (0.000-0.034) ng/mL 09/25/18 Range/Units 09:43 WBC (4.0-10.5) K/mm3 RBC (4.1-5.4) M/mm3 Hgb (12.0-16.0) gm/dl Hct (35-47) % MCV (78-100) fl MCH (26-32) pg MCHC (32-36) g/dl RDW (11.5-14.0) % Plt Count (150-450) K/mm3 MPV (6-9.5) fl Sodium 139 (137-145) mmol/L Potassium 4.0 D (3.5-5.1) mmol/L Chloride 110 H (98-107) mmol/L Carbon Dioxide 27 (22-30) mmol/L Anion Gap 6.0 (5-15) MEQ/L BUN 2 L (7-17) mg/dL Creatinine 0.52 (0.52-1.04) mg/dL Estimated GFR > 60.0 ML/MIN Glucose 80 (74-106) mg/dL Calcium 7.2 L (8.4-10.2) mg/dL Troponin I (0.000-0.034) ng/mL Micro Results-Entire Visit: Microbiology 09/23/18 21:45 Urine Culture - Preliminary Urine, Void GRAM NEGATIVE ID AND SENSITIVITY PENDING - Radiology Exams Ordered Rad Exams-Entire Visit: Radiology Procedures Category Date Time Status CAROTID BILATERAL [US] Routine Exams 09/24/18 09:19 Completed ECHO W/2D AND DOPPLER [US] Routine Exams 09/24/18 09:20 Taken HEAD W/WO CONTRAST [CT] Routine Exams 09/24/18 18:06 Completed - Procedures and Test Procedures and Tests throughout Hospitalization: Therapy Orders & Screens 09/23/18 10:49 Smoking Cessation Education ONCE Comment: Diagnosis: hypokalemia Smoking Status: Current every day smoker How long have you smoked: 35 Have you smoked in the past 12 months: Yes Approximately how many cigarettes per day: 4-5 Do you dip or chew tobacco: No 09/24/18 07:00 Respiratory Therapy Assessment DAILY Comment: Diagnosis: hypokalemia 09/24/18 18:01 EKG STAT Comment: Diagnosis: HYPOKALEMIA, SYNCOPE, FATIGUE Discharge Exam General Appearance: no apparent distress, alert, other (exam done this morning) Neurologic Exam: oriented x 3, cooperative Skin Exam: normal color, warm, dry, No rash Respiratory Exam: normal breath sounds, lungs clear, No crackles/rales, No rhonchi, No wheezing Cardiovascular Exam: regular rate/rhythm, normal heart sounds, No murmur Gastrointestinal/Abdomen Exam: soft, normal bowel sounds, No tenderness, No distention, No mass, No guarding, No rebound Extremity Exam: normal inspection, No pedal edema, No swelling Back Exam: normal inspection, No rash Final Diagnosis/Problem List - Final Discharge Diagnosis/Problem (1) Hypokalemia Current Visit: Yes Status: Resolved Onset Date: ~09/23/18 Assessment & Plan: Resolved, home on rx supplement. (2) GERD (gastroesophageal reflux disease) Current Visit: Yes Status: Chronic Assessment & Plan: Home on PPI. (3) Syncope Current Visit: Yes Status: Acute Assessment & Plan: Workup continues. She had a hypotensive episode last night, and thinks she has felt simliarly at home before syncopal episodes. Orthostats today were normal. She may need to follow up with cardiology. (4) Idiopathic peripheral neuropathy Current Visit: Yes Status: Chronic (5) HTN (hypertension) Current Visit: Yes Status: Chronic (6) Migraine Current Visit: Yes Status: Chronic (7) Tobacco use Current Visit: Yes Status: Chronic (8) Chronic back pain Current Visit: Yes Status: Chronic (9) Depression Current Visit: Yes Status: Chronic (10) Hypothyroid Current Visit: Yes Status: Chronic (11) Vomiting Current Visit: Yes Status: Chronic (12) Diarrhea Current Visit: Yes Status: Chronic - Discharge Disposition: Home, Self-Care Condition: Good Prescriptions: New Nitrofurantoin Monohyd/M-Cryst [Macrobid 100 mg Capsule] 100 mg PO BID #12 capsule Omeprazole 20 mg PO DAILY #30 capsule.dr Beth Vitamin B Complex Vit C No.3 [B Complex with Vitamin C] 1 each PO DAILY Multivit,Calc,Mins/Iron/Folic [Women's Daily Caplet] 1 each PO DAILY Albuterol Sulfate [Ventolin Hfa] 18 gm IH Q4H PRN PRN PRN Reason: Shortness Of Breath Potassium Chloride 20 Meq [Klor-Con 20 MEQ] 20 meq PO BID Magnesium Oxide 400 mg [Mag-Ox 400] 400 mg PO BID Nitroglycerin 0.4 mg Tablet [Nitrostat 0.4 MG Tablet] 0.4 mg SL DAILY PRN PRN PRN Reason: Chest Pain Levothyroxine Sodium 50 Mcg [Synthroid 50 Mcg] 50 mcg PO DAILY Alprazolam 0.5 mg PO DAILY Duloxetine HCl 30 mg [Cymbalta 30 MG Capsule] 30 mg PO DAILY Dicyclomine HCl 20 mg [Bentyl 20 mg] 20 mg PO BID Discontinued Metoprolol Tartrate 25 mg PO BID Naproxen 500 mg PO BID PRN Ondansetron ODT 4 MG [Zofran Odt 4 mg] 4 mg PO Q6H PRN PRN PRN Reason: Nausea Cephalexin Mh 500 mg [Keflex 500 mg] 500 mg PO BID Follow up with: LAURA CUENCA [ACTIVE STAFF] - 1 Week JUSTUS ALFARO [Primary Care Provider] - 10/03/18 9:15 am
[2018-09-25] MEDS ORDERED: DIPRIVAN 200 MG/20 ML IV ONE (19:14)
[2018-09-25] MEDS ORDERED: Ketamine HCl 50 MG/ML IV ONE (19:14)
[2018-09-25 19:25] VITALS: BP 106/68; PULSE 81; O2SAT 95
--- NOTE | 2018-09-26 07:38 | OP ---
SURGERY DATE/TIME: 09/25/2018 1548 PREOPERATIVE DIAGNOSES: A 35 pound weight loss, persistent vomiting. POSTOPERATIVE DIAGNOSES: A 35 pound weight loss, persistent vomiting. PROCEDURES: 1) EGD. 2) Colonoscopic examination. SURGEON: Austin Watts M.D. ANESTHESIA: MAC. COMPLICATIONS: None. CONDITION: Stable. INDICATION: The patient had persistent vomiting. DESCRIPTION OF PROCEDURE: She is taken to endoscopy. Upper scope is placed. She had grade 2/3 gastroesophageal reflux disease and a small hiatal hernia. She had some small gastric lesions. Two community health program representative biopsies obtained. They appear to be benign. I do not expect them to be the source of her problem. Pylorus satisfactory. Duodenal bulb satisfactory. Scope withdrawn. Colonoscopic examination. There was some swelling over the right side of the colon making things a little indistinct. I believe the ileocecal valve was cannulated and there was some slight swelling in the terminal ileum although the terminal ileum looked fairly normal. There was actually a lot of white mucus in the terminal ileum and the cecum. IMPRESSION: I certainly did not see anything specific. It seems like there is some inflammatory process in the right side cecum/ileum. She certainly could have some inflammatory bowel disease. On withdrawal of the scope the rest of the colon was satisfactory and there were no mucosal, polypoid lesions or cancer. The patient tolerated the procedure satisfactory. I am not very encouraged about having found anything that would be a major improvement for this patient today.
[2018-09-29 12:35] LABS: Source: Feces
== END 2018-09-25 19:15 | disposition home or self-care (01) | DRG 641 ==
LOC: MED SURG 09-23 09:41 → OBSVTOIN 09-23 10:10 → MED SURG 09-23 10:10
PROVIDERS: ADMIT Family Medicine; ATTEND Family Medicine
PROC: 0DJ08ZZ Inspection of Upper Intestinal Tract, Via Natural or Artificial Opening Endoscopic (ICD-10-PCS; principal; 2018-09-25)
PROC: 0DJD8ZZ Inspection of Lower Intestinal Tract, Via Natural or Artificial Opening Endoscopic (ICD-10-PCS; 2018-09-25)
DX: E87.6 Hypokalemia (principal); G60.9 Hereditary and idiopathic neuropathy, unspecified; I10 Essential (primary) hypertension; G43.909 Migraine, unspecified, not intractable, without status migrainosus; Z72.0 Tobacco use; M54.9 Dorsalgia, unspecified; G89.29 Other chronic pain; F32.9 Major depressive disorder, single episode, unspecified; E03.9 Hypothyroidism, unspecified; J44.9 Chronic obstructive pulmonary disease, unspecified; F41.9 Anxiety disorder, unspecified; R63.4 Abnormal weight loss; Z68.35 Body mass index [BMI] 35.0-35.9, adult; R91.8 Other nonspecific abnormal finding of lung field; R55 Syncope and collapse; R11.10 Vomiting, unspecified; E06.3 Autoimmune thyroiditis; Z79.899 Other long term (current) drug therapy; Z85.41 Personal history of malignant neoplasm of cervix uteri
CPT/HCPCS: 36415; 70470; 80048; 80053; 81001; 83735; 84132; 84484; 85025; 85027; 87045; 87046; 87077; 87086; 87177; 87186; 87209; 87329; 87335; 88305; 90686; 93005; 93268; 93306; 93880; 94760; G0008; J0696; J2704; J3480; A9270-GY

== ENCOUNTER 2018-10-01 16:40 | Observation (INO) | payer BC ==
[2018-10-01] MEDS ORDERED: Sodium Chloride 0.9% 1000 ML 1,000 ML IV SCH (17:45)
--- NOTE | 2018-10-01 17:49 | ERPHSYRPT ---
- History of Present Illness Time Seen by Provider: 10/01/18 17:37 Source: patient Exam Limitations: no limitations Patient Subjective Stated Complaint: "I have an increased loss of control in my legs and has been worse the past couple days. States unable to stand today. Triage Nursing Assessment: AAox3, color good, resp easy, Lung sounds with wheezes bilaterally, insp and exp. States h/o asthma, and smokes cigerettes. Abd soft and nontender, bowel sounds heard. No edema to extremeties noted. Physician History: 43-year-old white female with history of idiopathic peripheral neuropathy, Gregoria's thyroiditis, chronic back pain, hypokalemia who has a pain stimulator Recently released after being admitted secondary hypothyroidism Arrives with complaint of difficulty walking for 2-3 days she states when she walks her legs will give out on her and what she falls down she cannot get herself back up. She states she is able to move all her extremities. Past medical history includes etiopathic peripheral neuropathy, Gregoria's thyroiditis, chronic back pain, spinal pain stimulator, hypokalemia, migraines, peripheral neuropathy, asthma, high blood pressure, gallbladder disease, anxiety , we can heart, irritable bowel syndrome, UTI, nodules on her lungs, past surgical history includes cardiac catheter, tubal ligation, cervical cancer, tubal and ablation Social history positive tobacco use Timing/Duration: day(s) (2-3 days) Severity: moderate Modifying Factors: Improves With: other (occurs when walking) Associated Symptoms: weakness, other (weakness lower extremities), No nausea, No vomiting, No abdominal pain, No shortness of breath, No heartburn, No diaphoresis, No cough, No chills, No chest pain, No fever, No headaches, No loss of appetite, No malaise, No rash, No syncope, No seizure Allergies/Adverse Reactions: gabapentin Allergy (Severe, Verified 09/23/18 10:36) swell up pregabalin [From Lyrica] Allergy (Severe, Verified 09/23/18 10:37) Swell, and jaundice Home Medications: Albuterol Sulfate [Ventolin Hfa] 18 gm IH Q4H PRN PRN 06/03/15 [History] Magnesium Oxide 400 mg [Mag-Ox 400] 400 mg PO BID 06/03/15 [History] Multivit,Calc,Mins/Iron/Folic [Women's Daily Caplet] 1 each PO DAILY 06/03/15 [ History] Nitroglycerin 0.4 mg Tablet [Nitrostat 0.4 MG Tablet] 0.4 mg SL DAILY PRN PRN 06/03/15 [History] Potassium Chloride 20 Meq [Klor-Con 20 MEQ] 20 meq PO BID 06/03/15 [History] Vitamin B Complex Vit C No.3 [B Complex with Vitamin C] 1 each PO DAILY [History] Alprazolam 0.5 mg PO DAILY 11/10/15 [History] Duloxetine HCl 30 mg [Cymbalta 30 MG Capsule] 30 mg PO DAILY 11/10/15 [ History] Levothyroxine Sodium 50 Mcg [Synthroid 50 Mcg] 50 mcg PO DAILY 11/10/15 [ History] Dicyclomine HCl 20 mg [Bentyl 20 mg] 20 mg PO BID 09/23/18 [History] Mirtazapine 15 mg PO HS 10/01/18 [History] Nitrofurantoin Monohyd/M-Cryst [Macrobid 100 mg Capsule] 100 mg PO BID 10/01/18 [History] Hx Tetanus, Diphtheria Vaccination/Date Given: No Hx Influenza Vaccination/Date Given: Yes Hx Pneumococcal Vaccination/Date Given: No Immunizations Up to Date: Yes - Review of Systems Constitutional: No Fever, No Chills Eyes: No Symptoms Ears, Nose, & Throat: No Symptoms Respiratory: No Cough, No Dyspnea Cardiac: No Chest Pain, No Edema, No Syncope Abdominal/Gastrointestinal: No Abdominal Pain, No Nausea, No Vomiting, No Diarrhea Genitourinary Symptoms: No Dysuria Musculoskeletal: Other (Patient states her legs give out when she is walking) Skin: No Rash Neurological: Gait Changes, Other (patient states her legs give out when she is walking), No Dizziness, No Headache, No Irritability, No Lethargy, No Paralysis , No Parasthesia, No Seizure, No Sensory Changes, No Speech Changes, No Tics, No Tremors, No Vertigo Psychological: No Symptoms Endocrine: No Symptoms All Other Systems: Reviewed and Negative - Past Medical History Pertinent Past Medical History: Yes Neurological History: No Pertinent History, Migraines, Peripheral Neuropathy ENT History: No Pertinent History Cardiac History: Hypertension, Other Respiratory History: Asthma Endocrine Medical History: No Pertinent History Musculoskeletal History: No Pertinent History GI Medical History: Gallbladder Disease, Ulcer History: No Pertinent History Psycho-Social History: Anxiety Female Reproductive Disorders: No Pertinent History Other Medical History: heart cath in 2013 "weakened heart muscles, IBS UTI, Nodules on lung, anemia, low potassium - Past Surgical History Past Surgical History: Yes Neuro Surgical History: No Pertinent History Cardiac: Cardiac Catheterization Gastrointestinal: No Pertinent History Genitourinary: No Pertinent History Musculoskeletal: No Pertinent History Female Surgical History: Tubal Ligation Other Surgical History: cervical CA 95, 06, tubal and ablation 2011 - Social History Smoking Status: Current every day smoker How long have you smoked: 30 yrs Exposure to second hand smoke: Yes Drug Use: none Patient Lives Alone: No - Female History Hx Last Menstrual Period: ablasion Hx Now: No - Nursing Vital Signs Nursing Vital Signs: Initial Vital Signs Temperature 98.4 F 10/01/18 17:05 Pulse Rate 81 10/01/18 17:05 Respiratory Rate 20 10/01/18 17:05 Blood Pressure 137/110 10/01/18 17:05 O2 Sat by Pulse Oximetry 98 10/01/18 17:05 Pain Scale Pain Intensity 0 - Physical Exam General Appearance: no apparent distress, alert Eye Exam: PERRL/EOMI, eyes nml inspection Ears, Nose, Throat Exam: normal ENT inspection, TMs normal, pharynx normal, moist mucous membranes Neck Exam: normal inspection, non-tender, supple, full range of motion Respiratory Exam: normal breath sounds, lungs clear, No respiratory distress Cardiovascular Exam: regular rate/rhythm, normal heart sounds, normal peripheral pulses Gastrointestinal/Abdomen Exam: soft, normal bowel sounds, No tenderness, No mass Back Exam: normal inspection, normal range of motion, No CVA tenderness, No vertebral tenderness Extremity Exam: normal inspection, normal range of motion, pelvis stable Neurologic Exam: alert, oriented x 3, 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, other (normal finger to nose, wiggles both feet wiggles all toes sensation intact to all slow to bend both knees), No sensory deficit, No disoriented, No confusion, No agitation, No uncooperative, No intoxicated appearance, No facial droop, No slurred speech Skin Exam: normal color, warm, dry, No rash SpO2 Interpretation: normal (98%) SpO2: 98 Oxygen Delivery: Room Air - Course Nursing assessment & vital signs reviewed: Yes EKG Interpreted by Me: RATE (63 bpm), Sinus Rhythm, NORMAL AXIS, Other (EKG: Sinus rhythm, 63 bpm, normal axis, no acute ST or T wave changes noted.) - CT Exams Head CT Interpretation: Discussed w/radiologist (head Ct: stable, negative CT head compared to 09/24/18) Ordered Tests: Active Orders 24 hr Category Date Time Status IV Insertion STAT Care 10/01/18 17:41 Active HEAD WITHOUT CONTRAST [CT] Stat Exams 10/01/18 17:43 Taken CBC W DIFF Stat Lab 10/01/18 17:55 Completed CMP Stat Lab 10/01/18 17:55 Completed CULTURE,URINE Stat Lab 10/01/18 18:30 Received HCG QUALITATIVE,SERUM Stat Lab 10/01/18 17:55 Completed UA W/RFX UR CULTURE Stat Lab 10/01/18 18:30 Completed Urine Triage Profile Stat Lab 10/01/18 18:30 Completed Medication Summary Generic Name Dose Route Start Last Admin Trade Name Freq PRN Reason Stop Dose Admin Sodium Chloride 1,000 mls @ 100 mls/hr 10/01/18 17:45 10/01/18 18:09 Sodium Chloride 0.9% 1000 Ml IV 10/31/18 17:44 100 mls/hr .Q10H SLAVA Administration Potassium Chloride 100 mls @ 50 mls/hr 10/01/18 19:30 Potassium Chloride 20 Meq In Water 100ml IV 10/01/18 23:29 Q2H SLAVA Lab/Rad Data: Laboratory Result Diagrams 10/01/18 17:55 10/01/18 17:55 Laboratory Results 10/01/18 10/01/18 10/01/18 Range/Units 18:30 18:30 17:55 WBC (4.0-10.5) K/mm3 RBC (4.1-5.4) M/mm3 Hgb (12.0-16.0) gm/dl Hct (35-47) % MCV (78-100) fl MCH (26-32) pg MCHC (32-36) g/dl RDW (11.5-14.0) % Plt Count (150-450) K/mm3 MPV (6-9.5) fl Gran % (36.0-66.0) % Eos # (Auto) (0-0.5) Absolute Lymphs (auto) (1.0-4.6) Absolute Monos (auto) (0.0-1.3) Lymphocytes % (24.0-44.0) % Monocytes % (0.0-12.0) % Eosinophils % (0.00-5.0) % Basophils % (0.0-0.4) % Absolute Granulocytes (1.4-6.9) Basophils # (0-0.4) Sodium (137-145) mmol/L Potassium (3.5-5.1) mmol/L Chloride (98-107) mmol/L Carbon Dioxide (22-30) mmol/L Anion Gap (5-15) MEQ/L BUN (7-17) mg/dL Creatinine (0.52-1.04) mg/dL Estimated GFR ML/MIN Glucose (74-106) mg/dL Calcium (8.4-10.2) mg/dL Total Bilirubin (0.2-1.3) mg/dL AST (14-36) U/L ALT (0-35) U/L Alkaline Phosphatase (38-126) U/L Serum Total Protein (6.3-8.2) g/dL Albumin (3.5-5.0) g/dL Serum , Qual NEGATIVE (Negative) Urine Color ROJAS (YELLOW) Urine Appearance SLIGHTLY CLOUDY (CLEAR) Urine pH 5.0 (5-6) Ur Specific [place] 1.015 (1.005-1.025) Urine Protein 30 (Negative) Urine Ketones MODERATE (NEGATIVE) Urine Blood NEGATIVE (0-5) Chris/ul Urine Nitrite NEGATIVE (NEGATIVE) Urine Bilirubin NEGATIVE (NEGATIVE) Urine Urobilinogen 4 (0-1) mg/dL Ur Leukocyte Esterase NEGATIVE (NEGATIVE) Urine WBC (Auto) 16-25 (0-5) /HPF Urine RBC (Auto) 0-2 (0-2) /HPF U Hyaline Cast (Auto) 3-5 (0-2) /LPF U Epithel Cells (Auto) MODERATE (FEW) /HPF Urine Bacteria (Auto) FEW (NEGATIVE) /HPF Other Casts (Auto) NEGATIVE (NEGATIVE) /LPF Urine Mucus (Auto) SLIGHT (NEGATIVE) /HPF Urine Culture Reflexed YES (NO) Urine Glucose 50 (NEGATIVE) mg/dL Urine Opiates Level NEGATIVE (NEGATIVE) Ur Methadone NEGATIVE (NEGATIVE) Urine Barbiturates NEGATIVE (NEGATIVE) Ur Phencyclidine (PCP) NEGATIVE (NEGATIVE) Urine Amphetamine NEGATIVE (NEGATIVE) U Benzodiazepine Level POSITIVE (NEGATIVE) Urine Cocaine NEGATIVE (NEGATIVE) Urine Marijuana (THC) NEGATIVE (NEGATIVE) 10/01/18 10/01/18 Range/Units 17:55 17:55 WBC 8.8 (4.0-10.5) K/mm3 RBC 3.54 L (4.1-5.4) M/mm3 Hgb 12.5 (12.0-16.0) gm/dl Hct 36.4 (35-47) % MCV 102.8 H (78-100) fl MCH 35.3 H (26-32) pg MCHC 34.3 (32-36) g/dl RDW 12.5 (11.5-14.0) % Plt Count 314 (150-450) K/mm3 MPV 10.4 H (6-9.5) fl Gran % 65.8 (36.0-66.0) % Eos # (Auto) 0.03 (0-0.5) Absolute Lymphs (auto) 2.28 (1.0-4.6) Absolute Monos (auto) 0.69 (0.0-1.3) Lymphocytes % 25.9 (24.0-44.0) % Monocytes % 7.8 (0.0-12.0) % Eosinophils % 0.3 (0.00-5.0) % Basophils % 0.2 (0.0-0.4) % Absolute Granulocytes 5.79 (1.4-6.9) Basophils # 0.02 (0-0.4) Sodium 139 (137-145) mmol/L Potassium 2.5 L* (3.5-5.1) mmol/L Chloride 103 (98-107) mmol/L Carbon Dioxide 28 (22-30) mmol/L Anion Gap 10.0 (5-15) MEQ/L BUN 2 L (7-17) mg/dL Creatinine 0.56 (0.52-1.04) mg/dL Estimated GFR > 60.0 ML/MIN Glucose 77 (74-106) mg/dL Calcium 7.9 L (8.4-10.2) mg/dL Total Bilirubin 1.00 (0.2-1.3) mg/dL AST 44 H (14-36) U/L ALT 35 (0-35) U/L Alkaline Phosphatase 141 H (38-126) U/L Serum Total Protein 6.0 L (6.3-8.2) g/dL Albumin 2.6 L (3.5-5.0) g/dL Serum , Qual (Negative) Urine Color (YELLOW) Urine Appearance (CLEAR) Urine pH (5-6) Ur Specific [place] (1.005-1.025) Urine Protein (Negative) Urine Ketones (NEGATIVE) Urine Blood (0-5) Chris/ul Urine Nitrite (NEGATIVE) Urine Bilirubin (NEGATIVE) Urine Urobilinogen (0-1) mg/dL Ur Leukocyte Esterase (NEGATIVE) Urine WBC (Auto) (0-5) /HPF Urine RBC (Auto) (0-2) /HPF U Hyaline Cast (Auto) (0-2) /LPF U Epithel Cells (Auto) (FEW) /HPF Urine Bacteria (Auto) (NEGATIVE) /HPF Other Casts (Auto) (NEGATIVE) /LPF Urine Mucus (Auto) (NEGATIVE) /HPF Urine Culture Reflexed (NO) Urine Glucose (NEGATIVE) mg/dL Urine Opiates Level (NEGATIVE) Ur Methadone (NEGATIVE) Urine Barbiturates (NEGATIVE) Ur Phencyclidine (PCP) (NEGATIVE) Urine Amphetamine (NEGATIVE) U Benzodiazepine Level (NEGATIVE) Urine Cocaine (NEGATIVE) Urine Marijuana (THC) (NEGATIVE) - Progress Progress: improved Progress Note: 10/01/18 19:25 This is a 43-year-old white female with history of migraines, peripheral neuropathy, asthma, high blood pressure, gallbladder disease, anxiety, irritable bowel syndrome, Patient arrives with complaint of her legs giving out on her when she walks for the last 2-3 days she was recently admitted for hypokalemia. Patient is not having any chest pain no shortness of breath. 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 Patient is noted to have hypokalemia with a potassium of 2.5 patient's sodium is 139 chloride 103 bicarbonate 28 BUN is 2 creatinine 0.56 glucose is 77 patient's CBC white blood cell 8.8 hemoglobin 12.5 hematocrit 36.4 platelets 314 patient does have a positive urinary tract infection Will plan on of covering the patient with Rocephin I've ordered a K rider 40 mEq IV. I've discussed the patient's case with Dr. Yao who is functional support analyst for Dr. Blank. Will place patient on telemetry have the patient received a K rider obtain serial neuro checks order telemetry. Order CBC CMP in the morning. Will place patient on Rocephin Impression 1 bilateral leg weakness. 2 hypokalemia. 3 urinary tract infection - Departure Time of Disposition: 19:29 Departure Disposition: Observation Clinical Impression: Bilateral leg weakness, Hypokalemia Urinary tract infection Qualifiers: Urinary tract infection type: acute cystitis Hematuria presence: without hematuria Qualified Code(s): N30.00 - Acute cystitis without hematuria Condition: Fair Critical Care Time: No Referrals: JUSTUS BLANK [Primary Care Provider] -
[2018-10-01] MEDS ORDERED: Sodium Chloride 0.9% 1000 ML 1,000 ML ONE (17:58)
[2018-10-01 18:08] LABS: BASOPHIL % 0.2 % (0.0-0.4); Basophil (Absolute #) 0.02 (0-0.4); Eosinophil % 0.3 % (0.00-5.0); Eosinophil (Absolute #) 0.03 (0-0.5); Granulocyte Absolute (ANC) 5.79 (1.4-6.9); Granulocytes % 65.8 % (36.0-66.0); Hematocrit 36.4 % (35-47); Hemoglobin 12.5 gm/dl (12.0-16.0); Lymphocyte (Absolute #) 2.28 (1.0-4.6); Lymphocytes % 25.9 % (24.0-44.0); Mean Cell Volume 102.8 fl (78-100); Mean Corpuscular Hemoglobin 35.3 pg (26-32); Mean Corpuscular Hgb Concent. 34.3 g/dl (32-36); Mean Platelet Volume 10.4 fl (6-9.5); Monocyte (Absolute #) 0.69 (0.0-1.3); Monocytes % 7.8 % (0.0-12.0); Platelet Count 314 K/mm3 (150-450); Red Blood Count 3.54 M/mm3 (4.1-5.4); Red Cell Distribution Width 12.5 % (11.5-14.0); White Blood Count 8.8 K/mm3 (4.0-10.5)
[2018-10-01 18:46] LABS: ALBUMIN 2.6 g/dL (3.5-5.0); ALKALINE PHOSPHATASE 141 U/L (38-126); CHLORIDE 103 mmol/L (98-107); Calcium 7.9 mg/dL (8.4-10.2); Carbon Dioxide 28 mmol/L (22-30); Creatinine 1 0.56 mg/dL (0.52-1.04); Glucose 77 mg/dL (74-106); SGOT/AST 44 U/L (14-36); SGPT/ALT 35 U/L (0-35); SODIUM 139 mmol/L (137-145)
[2018-10-01 18:52] LABS: BLOOD UREA NITROGEN 2 mg/dL (7-17)
[2018-10-01 18:53] LABS: Potassium 2.5 mmol/L (3.5-5.1)
[2018-10-01 19:16] LABS: Appearance SLIGHTLY CLOUDY (CLEAR); Bilirubin NEGATIVE (NEGATIVE); Blood NEGATIVE Ery/ul (0-5); Glucose 50 mg/dL (NEGATIVE); Ketones MODERATE (NEGATIVE); Leukocyte Esterase NEGATIVE (NEGATIVE); Nitrite NEGATIVE (NEGATIVE); Protein,Urine Dip 30 (Negative); Specific Gravity 1.015 (1.005-1.025); Urobilinogen 4 mg/dL (0-1)
[2018-10-01 19:27] LABS: Amphetamine,Urine NEGATIVE (NEGATIVE); Barbiturate,Urine NEGATIVE (NEGATIVE); Benzodiazepine,Urine POSITIVE (NEGATIVE); Cocaine,Urine NEGATIVE (NEGATIVE); Methadone,Urine NEGATIVE (NEGATIVE); Opiate,Urine NEGATIVE (NEGATIVE); PCP,Urine NEGATIVE (NEGATIVE); THC,Urine NEGATIVE (NEGATIVE)
[2018-10-01] MEDS ORDERED: ROCEPHIN 1 Gm-D5w 50 ml Bag** 1 G/50 ML IVPB IV STA (19:36)
[2018-10-01] MEDS ORDERED: ROCEPHIN 1 Gm-D5w 50 ml Bag** 1 G/50 ML IVPB IV ONE (19:41)
[2018-10-01] MEDS ORDERED: POTASSIUM CHLORIDE 20 mEq IN WATER 100ML 100 ML IV ONE ×2 (19:41→22:25)
[2018-10-01] MEDS: POTASSIUM CHLORIDE 20 mEq IN WATER 100ML 100 ML IV SCH ×2 (19:48→22:33)
[2018-10-01] MEDS: Sodium Chloride 0.9% 1000 ML 1,000 ML IV SCH (23:23)
[2018-10-02] MEDS ORDERED: PROVENTIL COMMON CANISTER IH PRN (01:08)
[2018-10-02 03:57] LABS: ALKALINE PHOSPHATASE 106 U/L (38-126); ANION GAP 7.8 MEQ/L (5-15); CHLORIDE 110 mmol/L (98-107); Calcium 6.9 mg/dL (8.4-10.2); Carbon Dioxide 24 mmol/L (22-30); Creatinine 1 0.54 mg/dL (0.52-1.04); Glucose 83 mg/dL (74-106); Potassium 3.1 mmol/L (3.5-5.1); SGOT/AST 37 U/L (14-36); SGPT/ALT 29 U/L (0-35); SODIUM 138 mmol/L (137-145); Total Protein 4.8 g/dL (6.3-8.2)
[2018-10-02 04:07] LABS: BLOOD UREA NITROGEN 2 mg/dL (7-17)
[2018-10-02 04:39] LABS: BASOPHIL % 0.1 % (0.0-0.4); Basophil (Absolute #) 0.01 (0-0.4); Eosinophil % 0.3 % (0.00-5.0); Eosinophil (Absolute #) 0.02 (0-0.5); Hematocrit 30.6 % (35-47); Hemoglobin 10.4 gm/dl (12.0-16.0); Lymphocyte (Absolute #) 1.86 (1.0-4.6); Lymphocytes % 23.8 % (24.0-44.0); Mean Cell Volume 103.7 fl (78-100); Mean Platelet Volume 10.9 fl (6-9.5); Monocyte (Absolute #) 0.53 (0.0-1.3); Monocytes % 6.8 % (0.0-12.0); Platelet Count 268 K/mm3 (150-450); Red Blood Count 2.95 M/mm3 (4.1-5.4); Red Cell Distribution Width 12.3 % (11.5-14.0); White Blood Count 7.8 K/mm3 (4.0-10.5)
[2018-10-02 04:47] LABS: Mean Corpuscular Hemoglobin 35.2 pg (26-32)
[2018-10-02] MEDS: Sodium Chloride 0.9% 1000 ML 1,000 ML IV SCH ×2 (07:00→17:13)
--- NOTE | 2018-10-02 08:19 | PCM.HP ---
History of Present Illness - Chief Complaint Chief Complaint: bilateral leg weakness History of Present Illness: is a 43 year old female pt mine from [facility] with extensive PHMx who came in complaining of legs "giving out" during the day. Pt has hx of idiopathic peripheral neuropathy, Marquis's thyroiditis, chronic back pain with pain stimulator implant, migraine MAYER, psychiatric issues, and chronic vomiting and diarrhea. She typically has leg weakness and paresthesias but she doesn't usually have the legs go out. It started 4d ago when she was carrying a piece of pizza and she collapsed because her L leg went out from under her. Her family had to pick her up. It happened again daily over the next 3 days. No syncope. did not hit her head. She notes that she has had the idiopathic peripheral neuropathy She was admitted to [facility] on 09/23/18 for 3d for hypokalemia; upon admission we were discussing her chronic vomiting and diarrhea so she had an EGD and colonoscopy during her stay. She has been taking only over the counter potassium although I did prescribe a prescription potassium pill on her discharge (pt says [facility] did not have the potassium for her to burr picker). Has had some vomiting and diarrhea since her last hospital discharge but notes she has been on antibiotics. Thinks her nerves may have contributed. She has seen Dr. Noah Scott, neurology, at some point this year for her headaches. - Review of Systems Abdominal/Gastrointestinal: Abdominal Pain (chronic, nothing acute), Vomiting, Diarrhea Neurological: Focal Weakness, Parasthesia (chronic) All Other Systems: Reviewed and Negative Medications & Allergies Home Medications: Home Medication List Albuterol Sulfate [Ventolin Hfa] 18 gm IH Q4H PRN PRN 06/03/15 [History Confirmed 10/01/18] Magnesium Oxide 400 mg [Mag-Ox 400] 400 mg PO BID 06/03/15 [History Confirmed 10/01/18] Multivit,Calc,Mins/Iron/Folic [Women's Daily Caplet] 1 each PO DAILY 06/03/15 [ History Confirmed 10/01/18] Nitroglycerin 0.4 mg Tablet [Nitrostat 0.4 MG Tablet] 0.4 mg SL DAILY PRN PRN 06/03/15 [History Confirmed 10/01/18] Potassium Chloride 20 Meq [Klor-Con 20 MEQ] 20 meq PO BID 06/03/15 [History Confirmed 10/01/18] Vitamin B Complex Vit C No.3 [B Complex with Vitamin C] 1 each PO DAILY [History Confirmed 10/01/18] Alprazolam 1 mg PO BID PRN 11/10/15 [History Confirmed 10/01/18] Duloxetine HCl 30 mg [Cymbalta 30 MG Capsule] 30 mg PO DAILY 11/10/15 [ History Confirmed 10/01/18] Levothyroxine Sodium 50 Mcg [Synthroid 50 Mcg] 100 mcg PO DAILY 11/10/15 [ History Confirmed 10/01/18] Dicyclomine HCl 20 mg [Bentyl 20 mg] 20 mg PO BID 09/23/18 [History Confirmed 10/01/18] Omeprazole 20 mg PO DAILY #30 capsule. 09/25/18 [Rx Confirmed 10/01/18] Mirtazapine 15 mg PO HS 10/01/18 [History Confirmed 10/01/18] Nitrofurantoin Monohyd/M-Cryst [Macrobid 100 mg Capsule] 100 mg PO BID 10/01/18 [History Confirmed 10/01/18] Trazodone HCl 150 mg [Desyrel 150 MG] 150 mg PO QHS 10/01/18 [History Confirmed 10/01/18] Allergies/Adverse Reactions: Allergies Allergy/AdvReac Type Severity Reaction Status Date / Time gabapentin Allergy Severe Verified 09/23/18 10:36 pregabalin [From Lyrica] Allergy Severe Verified 09/23/18 10:37 - Past Medical History Past Medical History: Yes Neurological History: No Pertinent History, Migraines, Peripheral Neuropathy ENT History: No Pertinent History Cardiac History: Hypertension, Other Respiratory History: Asthma Endocrine Medical History: No Pertinent History Musculoskelatal History: No Pertinent History GI Medical History: Gallbladder Disease, Irritable Bowel, Ulcer History: No Pertinent History Pyscho-Social History: Anxiety Reproductive Disorders: No Pertinent History Comment: Nodules on lung, anemia, hypokalemia, marquis - Female History Hx Last Menstrual Period: ablasion Are you now?: No - Past Surgical History Past Surgical History: Yes Neuro Surgical History: No Pertinent History Cardiac History: Cardiac Catheterization Respiratory Surgery: No Pertinent History GI Surgical History: No Pertinent History Genitourinary Surgical Hx: No Pertinent History Musculskeletal Surgical Hx: No Pertinent History Female Surgical History: Tubal Ligation Other Surgical History: cervical CA 95, 06, tubal and ablation 2012, back stimulator - Social History Smoking Status: Current every day smoker How long have you smoked: 28 years Exposure to second hand smoke: Yes Alcohol: None Drug Use: none - Physical Exam Vital Signs: Vital Signs - 24 hr Temp Pulse Resp BP Pulse Ox 10/02/18 04:00 16 10/02/18 03:58 98.0 F 97 H 16 132/86 98 10/02/18 01:10 82 16 98 10/02/18 00:00 97.5 F 87 16 147/86 100 10/01/18 22:45 98.4 F 93 H 16 153/86 99 10/01/18 19:51 78 16 155/111 99 10/01/18 19:37 98 10/01/18 18:55 79 16 151/98 98 10/01/18 17:05 98.4 F 81 20 137/110 98 Results - Labs Lab/Micro Results: Lab Results-Last 24 Hours 10/01/18 10/01/18 10/01/18 Range/Units 17:45 17:55 17:55 WBC 8.8 (4.0-10.5) K/mm3 RBC 3.54 L (4.1-5.4) M/mm3 Hgb 12.5 (12.0-16.0) gm/dl Hct 36.4 (35-47) % MCV 102.8 H (78-100) fl MCH 35.3 H (26-32) pg MCHC 34.3 (32-36) g/dl RDW 12.5 (11.5-14.0) % Plt Count 314 (150-450) K/mm3 MPV 10.4 H (6-9.5) fl Gran % 65.8 (36.0-66.0) % Eos # (Auto) 0.03 (0-0.5) Absolute Lymphs (auto) 2.28 (1.0-4.6) Absolute Monos (auto) 0.69 (0.0-1.3) Lymphocytes % 25.9 (24.0-44.0) % Monocytes % 7.8 (0.0-12.0) % Eosinophils % 0.3 (0.00-5.0) % Basophils % 0.2 (0.0-0.4) % Absolute Granulocytes 5.79 (1.4-6.9) Basophils # 0.02 (0-0.4) Sodium 139 (137-145) mmol/L Potassium 2.5 L* (3.5-5.1) mmol/L Chloride 103 (98-107) mmol/L Carbon Dioxide 28 (22-30) mmol/L Anion Gap 10.0 (5-15) MEQ/L BUN 2 L (7-17) mg/dL Creatinine 0.56 (0.52-1.04) mg/dL Estimated GFR > 60.0 ML/MIN Glucose 77 (74-106) mg/dL Calcium 7.9 L (8.4-10.2) mg/dL Magnesium 1.8 (1.6-2.3) mg/dL Total Bilirubin 1.00 (0.2-1.3) mg/dL AST 44 H (14-36) U/L ALT 35 (0-35) U/L Alkaline Phosphatase 141 H (38-126) U/L Serum Total Protein 6.0 L (6.3-8.2) g/dL Albumin 2.6 L (3.5-5.0) g/dL Serum , Qual (Negative) Urine Color (YELLOW) Urine Appearance (CLEAR) Urine pH (5-6) Ur Specific Morton (1.005-1.025) Urine Protein (Negative) Urine Ketones (NEGATIVE) Urine Blood (0-5) Chris/ul Urine Nitrite (NEGATIVE) Urine Bilirubin (NEGATIVE) Urine Urobilinogen (0-1) mg/dL Ur Leukocyte Esterase (NEGATIVE) Urine WBC (Auto) (0-5) /HPF Urine RBC (Auto) (0-2) /HPF U Hyaline Cast (Auto) (0-2) /LPF U Epithel Cells (Auto) (FEW) /HPF Urine Bacteria (Auto) (NEGATIVE) /HPF Other Casts (Auto) (NEGATIVE) /LPF Urine Mucus (Auto) (NEGATIVE) /HPF Urine Culture Reflexed (NO) Urine Glucose (NEGATIVE) mg/dL Urine Opiates Level (NEGATIVE) Ur Methadone (NEGATIVE) Urine Barbiturates (NEGATIVE) Ur Phencyclidine (PCP) (NEGATIVE) Urine Amphetamine (NEGATIVE) U Benzodiazepine Level (NEGATIVE) Urine Cocaine (NEGATIVE) Urine Marijuana (THC) (NEGATIVE) 10/01/18 10/01/18 10/01/18 Range/Units 17:55 18:30 18:30 WBC (4.0-10.5) K/mm3 RBC (4.1-5.4) M/mm3 Hgb (12.0-16.0) gm/dl Hct (35-47) % MCV (78-100) fl MCH (26-32) pg MCHC (32-36) g/dl RDW (11.5-14.0) % Plt Count (150-450) K/mm3 MPV (6-9.5) fl Gran % (36.0-66.0) % Eos # (Auto) (0-0.5) Absolute Lymphs (auto) (1.0-4.6) Absolute Monos (auto) (0.0-1.3) Lymphocytes % (24.0-44.0) % Monocytes % (0.0-12.0) % Eosinophils % (0.00-5.0) % Basophils % (0.0-0.4) % Absolute Granulocytes (1.4-6.9) Basophils # (0-0.4) Sodium (137-145) mmol/L Potassium (3.5-5.1) mmol/L Chloride (98-107) mmol/L Carbon Dioxide (22-30) mmol/L Anion Gap (5-15) MEQ/L BUN (7-17) mg/dL Creatinine (0.52-1.04) mg/dL Estimated GFR ML/MIN Glucose (74-106) mg/dL Calcium (8.4-10.2) mg/dL Magnesium (1.6-2.3) mg/dL Total Bilirubin (0.2-1.3) mg/dL AST (14-36) U/L ALT (0-35) U/L Alkaline Phosphatase (38-126) U/L Serum Total Protein (6.3-8.2) g/dL Albumin (3.5-5.0) g/dL Serum , Qual NEGATIVE (Negative) Urine Color ROJAS (YELLOW) Urine Appearance SLIGHTLY CLOUDY (CLEAR) Urine pH 5.0 (5-6) Ur Specific Morton 1.015 (1.005-1.025) Urine Protein 30 (Negative) Urine Ketones MODERATE (NEGATIVE) Urine Blood NEGATIVE (0-5) Chris/ul Urine Nitrite NEGATIVE (NEGATIVE) Urine Bilirubin NEGATIVE (NEGATIVE) Urine Urobilinogen 4 (0-1) mg/dL Ur Leukocyte Esterase NEGATIVE (NEGATIVE) Urine WBC (Auto) 16-25 (0-5) /HPF Urine RBC (Auto) 0-2 (0-2) /HPF U Hyaline Cast (Auto) 3-5 (0-2) /LPF U Epithel Cells (Auto) MODERATE (FEW) /HPF Urine Bacteria (Auto) FEW (NEGATIVE) /HPF Other Casts (Auto) NEGATIVE (NEGATIVE) /LPF Urine Mucus (Auto) SLIGHT (NEGATIVE) /HPF Urine Culture Reflexed YES (NO) Urine Glucose 50 (NEGATIVE) mg/dL Urine Opiates Level NEGATIVE (NEGATIVE) Ur Methadone NEGATIVE (NEGATIVE) Urine Barbiturates NEGATIVE (NEGATIVE) Ur Phencyclidine (PCP) NEGATIVE (NEGATIVE) Urine Amphetamine NEGATIVE (NEGATIVE) U Benzodiazepine Level POSITIVE (NEGATIVE) Urine Cocaine NEGATIVE (NEGATIVE) Urine Marijuana (THC) NEGATIVE (NEGATIVE) 10/02/18 10/02/18 Range/Units 03:43 03:43 WBC 7.8 (4.0-10.5) K/mm3 RBC 2.95 L (4.1-5.4) M/mm3 Hgb 10.4 L (12.0-16.0) gm/dl Hct 30.6 L (35-47) % MCV 103.7 H (78-100) fl MCH 35.2 H (26-32) pg MCHC 34.0 (32-36) g/dl RDW 12.3 (11.5-14.0) % Plt Count 268 (150-450) K/mm3 MPV 10.9 H (6-9.5) fl Gran % 69.0 H (36.0-66.0) % Eos # (Auto) 0.02 (0-0.5) Absolute Lymphs (auto) 1.86 (1.0-4.6) Absolute Monos (auto) 0.53 (0.0-1.3) Lymphocytes % 23.8 L (24.0-44.0) % Monocytes % 6.8 (0.0-12.0) % Eosinophils % 0.3 (0.00-5.0) % Basophils % 0.1 (0.0-0.4) % Absolute Granulocytes 5.40 (1.4-6.9) Basophils # 0.01 (0-0.4) Sodium 138 (137-145) mmol/L Potassium 3.1 L D (3.5-5.1) mmol/L Chloride 110 H (98-107) mmol/L Carbon Dioxide 24 (22-30) mmol/L Anion Gap 7.8 (5-15) MEQ/L BUN 2 L (7-17) mg/dL Creatinine 0.54 (0.52-1.04) mg/dL Estimated GFR > 60.0 ML/MIN Glucose 83 (74-106) mg/dL Calcium 6.9 L (8.4-10.2) mg/dL Magnesium (1.6-2.3) mg/dL Total Bilirubin 0.70 (0.2-1.3) mg/dL AST 37 H (14-36) U/L ALT 29 (0-35) U/L Alkaline Phosphatase 106 (38-126) U/L Serum Total Protein 4.8 L (6.3-8.2) g/dL Albumin 2.0 L (3.5-5.0) g/dL Serum , Qual (Negative) Urine Color (YELLOW) Urine Appearance (CLEAR) Urine pH (5-6) Ur Specific Morton (1.005-1.025) Urine Protein (Negative) Urine Ketones (NEGATIVE) Urine Blood (0-5) Chris/ul Urine Nitrite (NEGATIVE) Urine Bilirubin (NEGATIVE) Urine Urobilinogen (0-1) mg/dL Ur Leukocyte Esterase (NEGATIVE) Urine WBC (Auto) (0-5) /HPF Urine RBC (Auto) (0-2) /HPF U Hyaline Cast (Auto) (0-2) /LPF U Epithel Cells (Auto) (FEW) /HPF Urine Bacteria (Auto) (NEGATIVE) /HPF Other Casts (Auto) (NEGATIVE) /LPF Urine Mucus (Auto) (NEGATIVE) /HPF Urine Culture Reflexed (NO) Urine Glucose (NEGATIVE) mg/dL Urine Opiates Level (NEGATIVE) Ur Methadone (NEGATIVE) Urine Barbiturates (NEGATIVE) Ur Phencyclidine (PCP) (NEGATIVE) Urine Amphetamine (NEGATIVE) U Benzodiazepine Level (NEGATIVE) Urine Cocaine (NEGATIVE) Urine Marijuana (THC) (NEGATIVE) - Radiology Impressions Radiology Exams & Impressions: Radiology Procedures Category Date Time Status HEAD WITHOUT CONTRAST [CT] Stat Exams 10/01/18 17:43 Taken - Other Procedures and Tests Respiratory Therapy 10/02/18 01:10 Respiratory Therapy Assessment DAILY Assessment/Plan (1) Bilateral leg weakness Current Visit: Yes Status: Acute Assessment & Plan: checking autoimmune panela nd MRI brain and lumbar spine. Code(s): R29.898 - OTH SYMPTOMS AND SIGNS INVOLVING THE MUSCULOSKELETAL SYSTEM (2) Hypokalemia Current Visit: Yes Status: Acute Assessment & Plan: stlll not on Rx potassium at home Code(s): E87.6 - HYPOKALEMIA (3) Urinary tract infection Current Visit: Yes Status: Acute Qualifiers: Urinary tract infection type: acute cystitis Hematuria presence: without hematuria Qualified Code(s): N30.00 - Acute cystitis without hematuria Assessment & Plan: on IV rocephin Code(s): N39.0 - URINARY TRACT INFECTION, SITE NOT SPECIFIED (4) Chronic back pain Current Visit: No Status: Chronic Qualifiers: Back pain location: back pain in unspecified location Back pain laterality : unspecified Qualified Code(s): M54.9 - Dorsalgia, unspecified; G89.29 - Other chronic pain Assessment & Plan: states can turn pain stimulator to "MRI shutoff" mode Code(s): M54.9 - DORSALGIA, UNSPECIFIED; G89.29 - OTHER CHRONIC PAIN (5) HTN (hypertension) Current Visit: No Status: Chronic Qualifiers: Hypertension type: essential hypertension Qualified Code(s): I10 - Essential (primary) hypertension Code(s): I10 - ESSENTIAL (PRIMARY) HYPERTENSION (6) Idiopathic peripheral neuropathy Current Visit: No Status: Chronic Code(s): G60.9 - HEREDITARY AND IDIOPATHIC NEUROPATHY, UNSPECIFIED (7) Vomiting Current Visit: No Status: Chronic Qualifiers: Vomiting type: unspecified Nausea presence: with nausea Code(s): R11.10 - VOMITING, UNSPECIFIED
[2018-10-02] MEDS ORDERED: APRESOLINE 20 MG/ML INJ IV PRN (08:23)
--- NOTE | 2018-10-02 08:38 | XRAY ---
Indication: Unsteady gait 3 days. No known injury. Multiple contiguous axial images obtained through the head without contrast. Comparison: September 24, 2018. Stable normal brain parenchyma, ventricles, and bony calvarium. Visualized paranasal sinuses and mastoid air cells remain clear. Impression: Stable normal CT head without contrast exam. CT DI 69.79
[2018-10-02] MEDS ORDERED: Nitrostat 0.4 MG Tablet SL PRN (09:39)
[2018-10-02] MEDS ORDERED: NON-FORMULARY ITEM (Omeprazole [Omeprazole] 20 MG) PO SCH (10:00)
[2018-10-02] MEDS ORDERED: VITAMIN C PO SCH (10:00)
[2018-10-02] MEDS ORDERED: XANAX 1 MG PO PRN (10:00)
[2018-10-02] MEDS ORDERED: NON-FORMULARY ITEM (Potassium Chloride 20 Meq [Klor-Con 20 Meq] 20 MEQ) PO SCH (10:00)
[2018-10-02] MEDS ORDERED: [UNRECOGNIZED DRUG - OTHER] PO SCH (10:00)
[2018-10-02] MEDS: SYNTHROID 100 MCG PO SCH (10:09)
[2018-10-02] MEDS: Klor Con 10 MEQ PO SCH ×2 (10:09→21:38)
[2018-10-02] MEDS: BENTYL 20 MG PO SCH ×2 (10:09→21:37)
[2018-10-02] MEDS: Protonix 40MG Tablet PO SCH (10:09)
[2018-10-02] MEDS: Cymbalta 30 MG Capsule PO SCH (10:09)
[2018-10-02] MEDS: VITA-BEE WITH C PO SCH (11:11)
[2018-10-02] MEDS: MAG-OX 400 PO SCH ×2 (11:11→21:38)
[2018-10-02] MEDS: Macrobid 100MG Capsule PO SCH ×2 (11:11→17:06)
[2018-10-02] MEDS: ENOXAPARIN SODIUM SQ SCH (17:07)
[2018-10-02] MEDS ORDERED: Desyrel 150 MG PO SCH (22:00)
[2018-10-02] MEDS ORDERED: ROCEPHIN 1 Gm-D5w 50 ml Bag** 1 G/50 ML IVPB IV SCH (22:00)
[2018-10-02] MEDS ORDERED: REMERON 30 MG PO SCH (22:00)
[2018-10-03 03:08] LABS: COMPLEMENT C3 95 mg/dL (88-201)
[2018-10-03] MEDS: Sodium Chloride 0.9% 1000 ML 1,000 ML IV SCH (03:18)
[2018-10-03 07:45] VITALS: O2SAT 99
[2018-10-03] MEDS: Macrobid 100MG Capsule PO SCH (08:40)
--- NOTE | 2018-10-03 09:09 | PCM.DS ---
Discharge Summary Date of Admission: 10/01/18 20:36 Admitting Physician: JUSTUS ALFARO Consults: Consults on Case 10/02/18 11:30 Tele-Health Consult ROUTINE Primary Care Provider: JUSTUS ALFARO Allergies Allergies gabapentin Allergy (Severe, Verified 09/23/18 10:36) swell up pregabalin [From Lyrica] Allergy (Severe, Verified 09/23/18 10:37) Swell, and jaundice Hospital Summary - Hospital Course Hospital Course: Pt is 43 yo pt of mine with peripheral neuropathy and extensive medical history and workup (including recent EGD/colonoscopy for chronic nausea and vomiting, depression, hypothyroidism, headaches, back pain with pain stimulator, and anxiety) who was admitted with weakness and giving out of LE, with several falls at home. She was hypokalemic; had been admitted with hypokalemia recently , was supposed to get potassium from the pharmacy but apparently it wasn't called in. MRI of brain and lumbar spine denied by insurance. Teleneurology consult advised check CPK and otherwise have her f/u with outpatient neurology. She has been working with PT and doing well with a walker. If OK with PT, pt to be discharged to home today with outpatient follow up with Dr. Kim Scott. Potassium will be called to pharmacy and double checked to make sure it gets there. She had abnormal TSH, which will be faxed to Rochelle Fajardo's office for possible adjusting of thyroid. - Vitals & Intake/Output Vital Signs: Vital Signs Temperature 98.7 F 10/03/18 07:45 Pulse Rate 107 H 10/03/18 07:45 Respiratory Rate 15 10/03/18 07:45 Blood Pressure 154/94 10/03/18 07:45 O2 Sat by Pulse Oximetry 99 10/03/18 07:45 Intake & Output: Intake & Output 09/30/18 10/01/18 10/02/18 10/03/18 11:59 11:59 11:59 11:59 Intake Total 2556 3833 Output Total 700 1150 Balance 1856 7933 Weight 58 kg 58.6 kg - Lab Result Diagrams: 10/02/18 03:43 10/02/18 03:43 Lab Results-Last 24 Hrs: Lab Results-Last 24 Hours 10/02/18 10/02/18 10/02/18 Range/Units 05:15 05:15 05:15 ESR 18 (0-20) mm/hr C-Reactive Prot, Quant (0.00-10.00) mg/L Vitamin B12 > 1000 H (239-931) pg/mL Free T4 (0.76-1.46) ng/dL T3 (MICHAEL) (80-200) ng/dL TSH 3rd Generation (0.47-4.68) mIU/L Rheumatoid Factor Scrn NEGATIVE (Negative) JACQUELINE IgG Screen Complement C3 (88-201) mg/dL RPR w/Rflx to Titer 10/02/18 10/02/18 10/02/18 Range/Units 05:15 10:35 10:35 ESR (0-20) mm/hr C-Reactive Prot, Quant 9.14 (0.00-10.00) mg/L Vitamin B12 (239-931) pg/mL Free T4 (0.76-1.46) ng/dL T3 (MICHAEL) (80-200) ng/dL TSH 3rd Generation 0.110 L (0.47-4.68) mIU/L Rheumatoid Factor Scrn (Negative) JACQUELINE IgG Screen Pending Complement C3 95 (88-201) mg/dL RPR w/Rflx to Titer Pending 10/02/18 10/02/18 Range/Units 10:35 10:35 ESR (0-20) mm/hr C-Reactive Prot, Quant (0.00-10.00) mg/L Vitamin B12 (239-931) pg/mL Free T4 2.39 H (0.76-1.46) ng/dL T3 (MICHAEL) 76 L (80-200) ng/dL TSH 3rd Generation (0.47-4.68) mIU/L Rheumatoid Factor Scrn (Negative) JACQUELINE IgG Screen Complement C3 (88-201) mg/dL RPR w/Rflx to Titer Micro Results-Entire Visit: Microbiology 10/01/18 18:30 Urine Culture - Final Clean Catch Midstream MIXED LINDSAY; 3 OR MORE TYPES. NO PREDOMINANT ORGANISM. NO FURTHER WORKUP. PLEASE RESUBMIT IF CLINICALLY INDICATED. - Radiology Exams Ordered Rad Exams-Entire Visit: Radiology Procedures Category Date Time Status HEAD WITHOUT CONTRAST [CT] Stat Exams 10/01/18 17:43 Completed - Procedures and Test Procedures and Tests throughout Hospitalization: Therapy Orders & Screens 10/01/18 23:21 RT Screen per Nursing Assess ONCE Comment: Protocol Order Physician Instructions: Greater than 3 points order RT Admission Screen Reason For Exam: Triggered on Admission Diagnosis: bilateral leg weakness Diagnosis: bilateral leg weakness Pneumonia: No Home O2: No Asthma: Yes CHF: No Home CPAP/BIPAP: No Home Nebs/MDI: Yes Total Points: 9 Smoking Cessation Education ONCE Comment: Diagnosis: bilateral leg weakness Smoking Status: Current every day smoker How long have you smoked: 28 years Have you smoked in the past 12 months: Yes Approximately how many cigarettes per day: 3-4 cigs Do you dip or chew tobacco: No 10/02/18 01:10 Respiratory Therapy Assessment DAILY Comment: Diagnosis: bilateral leg weakness 10/02/18 08:00 OT Screen per Nursing Assess ONCE Comment: Protocol Order Physician Instructions: Greater than 3 points order OT Admission Screening Reason For Exam: Triggered on Admission Diagnosis: bilateral leg weakness Open Wound/Cellutlitis/Pressure Ulcers: No Acute Fx/ORIF/Change in wt bearing status: No Severe MUSCULOSKELETAL pain: No ADL Dysfunction: Yes Acute CVA w/Hemiparesis/Hemiplegia: No Decreased Functional Mobility/Strength: Yes Sprain/Strain: No Acute Post-op Mobility Dysfunction: No Total Points: 4 PT Screen per Nursing Assess ONCE Comment: Protocol Order Physician Instructions: Greater than 3 points order PT Admission Screenin Reason For Exam: Triggered on Admission Diagnosis: bilateral leg weakness Open Wound/Cellutlitis/Pressure Ulcers: No Acute Fx/ORIF/Change in wt bearing status: No Severe MUSCULOSKELETAL pain: No ADL Dysfunction: Yes Acute CVA w/Hemiparesis/Hemiplegia: No Decreased Functional Mobility/Strength: Yes Sprain/Strain: No Acute Post-op Mobility Dysfunction: No Total Points: 4 10/02/18 13:28 PT Eval & Treat (MD Order) ROUTINE Reason for Eval:: PT EVAL, PATIENT WANTING A WALKER FOR HOME Diagnosis: bilateral leg weakness Discharge Exam General Appearance: no apparent distress, alert Neurologic Exam: oriented x 3, cooperative Skin Exam: normal color, warm, dry, No rash Eye Exam: eyes nml inspection Ears, Nose, Throat Exam: moist mucous membranes Neck Exam: normal inspection Respiratory Exam: normal breath sounds, lungs clear, No crackles/rales, No rhonchi, No wheezing Cardiovascular Exam: regular rate/rhythm, normal heart sounds, No murmur Extremity Exam: normal inspection, No pedal edema, No swelling Final Diagnosis/Problem List - Final Discharge Diagnosis/Problem (1) Bilateral leg weakness Current Visit: Yes Status: Acute Onset Date: ~10/01/18 Assessment & Plan: Needs outpatient, hands on neurology exam. Will f/u outpatient wiht Dr. Noah Scott. (2) Hypokalemia Current Visit: Yes Status: Acute Onset Date: ~10/01/18 Assessment & Plan: Home on potassium Rx. Will need evaluated for congential hypokalemic paralysis , per neuro consult. (3) Urinary tract infection Current Visit: Yes Status: Acute Onset Date: ~10/01/18 Assessment & Plan: home on antibiotics - finish macrobid with which she started (4) Chronic back pain Current Visit: No Status: Chronic (5) HTN (hypertension) Current Visit: No Status: Chronic Assessment & Plan: will start beta michael (6) Idiopathic peripheral neuropathy Current Visit: No Status: Chronic (7) Vomiting Current Visit: No Status: Chronic - Discharge Disposition: Home, Self-Care Condition: Stable Prescriptions: New Potassium Chloride [K-Dur] 20 meq PO BID #60 tab.er.prt Metoprolol Succinate 25 mg Xl* [Toprol-Xl 25MG Tablets] 25 mg PO DAILY # 30 tab Continue Vitamin B Complex Vit C No.3 [B Complex with Vitamin C] 1 each PO DAILY Multivit,Calc,Mins/Iron/Folic [Women's Daily Caplet] 1 each PO DAILY Albuterol Sulfate [Ventolin Hfa] 18 gm IH Q4H PRN PRN PRN Reason: Shortness Of Breath Potassium Chloride 20 Meq [Klor-Con 20 MEQ] 20 meq PO BID Magnesium Oxide 400 mg [Mag-Ox 400] 400 mg PO BID Nitroglycerin 0.4 mg Tablet [Nitrostat 0.4 MG Tablet] 0.4 mg SL DAILY PRN PRN PRN Reason: Chest Pain Levothyroxine Sodium 50 Mcg [Synthroid 50 Mcg] 100 mcg PO DAILY Alprazolam 1 mg PO BID PRN Duloxetine HCl 30 mg [Cymbalta 30 MG Capsule] 30 mg PO DAILY Dicyclomine HCl 20 mg [Bentyl 20 mg] 20 mg PO BID Omeprazole 20 mg PO DAILY #30 capsule. Mirtazapine 15 mg PO HS Nitrofurantoin Monohyd/M-Cryst [Macrobid 100 mg Capsule] 100 mg PO BID Trazodone HCl 150 mg [Desyrel 150 MG] 150 mg PO QHS Follow up with: JUSTUS ALFARO [Primary Care Provider] - 1 Week
[2018-10-03] MEDS: ENOXAPARIN SODIUM SQ SCH (09:25)
[2018-10-03] MEDS: SYNTHROID 100 MCG PO SCH (09:26)
[2018-10-03] MEDS: BENTYL 20 MG PO SCH (09:26)
[2018-10-03] MEDS: Klor Con 10 MEQ PO SCH (09:26)
[2018-10-03] MEDS: VITA-BEE WITH C PO SCH (09:27)
[2018-10-03] MEDS: Protonix 40MG Tablet PO SCH (09:27)
[2018-10-03] MEDS: MAG-OX 400 PO SCH (09:27)
[2018-10-03] MEDS: Cymbalta 30 MG Capsule PO SCH (09:27)
[2018-10-03] MEDS ORDERED: Klor Con 10 MEQ PO ONE (11:40)
[2018-10-03 12:48] LABS: ANA IgG Screen Positive (Neg. at 1:80); ANA Pattern Speckled
[2018-10-03 13:07] LABS: ANA Pattern Interp Detail See Result Note:
[2018-10-03 14:18] VITALS: BP 142/90; PULSE 86
[2018-10-03 14:22] LABS: RPR Screen Non Reactive (Non Reactive)
== END 2018-10-03 12:50 | disposition home or self-care (01) ==
LOC: ED 16:40 → MED SURG 20:36
PROVIDERS: ADMIT Family Medicine; ATTEND Family Medicine
DX: R53.1 Weakness (principal); R26.2 Difficulty in walking, not elsewhere classified; E87.6 Hypokalemia; N39.0 Urinary tract infection, site not specified; M54.9 Dorsalgia, unspecified; G89.29 Other chronic pain; I10 Essential (primary) hypertension; G60.9 Hereditary and idiopathic neuropathy, unspecified; R11.10 Vomiting, unspecified; E06.3 Autoimmune thyroiditis; Z79.899 Other long term (current) drug therapy; K58.9 Irritable bowel syndrome, unspecified; K82.9 Disease of gallbladder, unspecified; C53.9 Malignant neoplasm of cervix uteri, unspecified
CPT/HCPCS: 36000; 36415; 70450; 80053; 80307; 81001; 81025; 82550; 82607; 83735; 84132; 84439; 84443; 84480; 85025; 85652; 86038; 86140; 86160; 86430; 86592; 86593; 86780; 87086; 93041; 93268; 94760; 96360; 96361; 96365; 96368; 96374; 97161; 99285; G0378; J0696; J1650; J3480; A9270-GY

== ENCOUNTER 2019-03-04 09:34 | Emergency (ER) | payer BC ==
[2019-03-04] MEDS ORDERED: Sodium Chloride 0.9% 1000 ML 1,000 ML IV SCH (10:00)
[2019-03-04 10:12] LABS: Basophil (Absolute #) 0 (0-0.4); Eosinophil % 0.1 % (0.00-5.0); Eosinophil (Absolute #) 0.01 (0-0.5); Granulocyte Absolute (ANC) 11.77 (1.4-6.9); Granulocytes % 85.5 % (36.0-66.0); Hemoglobin 11.5 gm/dl (12.0-16.0); Lymphocyte (Absolute #) 1.31 (1.0-4.6); Lymphocytes % 9.5 % (24.0-44.0); Mean Corpuscular Hgb Concent. 34.8 g/dl (32-36); Monocyte (Absolute #) 0.68 (0.0-1.3); Monocytes % 4.9 % (0.0-12.0); Platelet Count 306 K/mm3 (150-450); Red Blood Count 2.92 M/mm3 (4.1-5.4); Red Cell Distribution Width 14.3 % (11.5-14.0); White Blood Count 13.8 K/mm3 (4.0-10.5)
[2019-03-04] MEDS ORDERED: Sodium Chloride 0.9% 1000 ML 1,000 ML ONE (10:14)
--- NOTE | 2019-03-04 10:18 | ERPHSYRPT ---
- History of Present Illness Time Seen by Provider: 03/04/19 10:13 Source: patient Exam Limitations: no limitations Patient Subjective Stated Complaint: pt reports she was prescribed clonidine to assist with her issues with alcoholism, pt reports she is trying to quit drinking and she has a lot of nausea associated with that. pt reports involuntary movements of the hands and some intermittent confusion. Triage Nursing Assessment: pt is aox3, afebrile, pt answers questions appropriately, pt follows commands, pt hand overhead worker are slightly weak but equal, pt sensation is intact, radial pulses strong and equal, cap refill < 3 seconds, pt has motor restlessness to the hands and arms, pt can move all extremities when asked, pt skin is pale warm dry. skin intact. Physician History: 43-year-old white female with history of migraines, peripheral neuropathy, asthma, gallbladder disease, ulcers, anxiety, heart catheter, weak heart Patient arrives with complaints of waking up this morning with Random movements, (akethesis) since this morning. The patient does state that she has recently been on clonidine patch and she is wanting to get off of this she states that she had been placed on a clonidine patch 2 weeks ago she feels like this is causing her a problem. She does state that she was placed on a clonidine patch secondary to alcohol. She states that the last time she had any alcohol was 4-5 days ago. She denies any illicit drug use. Patient does have a chronic prescription for Xanax she states she has not recently discontinued this. She is not having a shortness of breath chest pain problems moving. Past medical history includes migraines, peripheral neuropathy, asthma, gallbladder disease, ulcers, anxiety, heart catheter, weak heart muscles, irritable bowel, UTI, nodules in the lungs. Past surgical history cardiac catheter, tubal ligation, cervical cancer, uterine ablation. Timing/Duration: today Severity: moderate Modifying Factors: Improves With: nothing Associated Symptoms: other (patient with frequent movements of her hands), No nausea, No vomiting, No abdominal pain, No shortness of breath, No heartburn, No diaphoresis, No cough, No chills, No chest pain, No fever, No headaches, No loss of appetite, No malaise, No rash, No syncope, No seizure, No weakness Allergies/Adverse Reactions: gabapentin Allergy (Severe, Verified 03/04/19 10:22) swell up pregabalin [From Lyrica] Allergy (Severe, Verified 03/04/19 10:22) Swell, and jaundice Home Medications: Albuterol Sulfate [Ventolin Hfa] 18 gm IH Q4H PRN PRN 06/03/15 [History] Magnesium Oxide 400 mg [Mag-Ox 400] 400 mg PO BID 06/03/15 [History] Multivit,Calc,Mins/Iron/Folic [Women's Daily Caplet] 1 each PO DAILY 06/03/15 [ History] Nitroglycerin 0.4 mg Tablet [Nitrostat 0.4 MG Tablet] 0.4 mg SL DAILY PRN PRN 06/03/15 [History] Vitamin B Complex Vit C No.3 [B Complex with Vitamin C] 1 each PO DAILY [History] Alprazolam 1 mg PO BID PRN 11/10/15 [History] Duloxetine HCl 30 mg [Cymbalta 30 MG Capsule] 30 mg PO DAILY 11/10/15 [ History] Levothyroxine Sodium 50 Mcg [Synthroid 50 Mcg] 100 mcg PO DAILY 11/10/15 [ History] Dicyclomine HCl 20 mg [Bentyl 20 mg] 20 mg PO BID 09/23/18 [History] Mirtazapine 15 mg PO HS 10/01/18 [History] Nitrofurantoin Monohyd/M-Cryst [Macrobid 100 mg Capsule] 100 mg PO BID 10/01/18 [History] Trazodone HCl 150 mg [Desyrel 150 MG] 150 mg PO QHS 10/01/18 [History] cloNIDine [Clonidine] 1 each TD WEEKLY 03/04/19 [History] Hx Tetanus, Diphtheria Vaccination/Date Given: Yes Hx Influenza Vaccination/Date Given: Yes Hx Pneumococcal Vaccination/Date Given: Yes Immunizations Up to Date: Yes - Review of Systems Constitutional: No Fever, No Chills Eyes: No Symptoms Ears, Nose, & Throat: No Symptoms Respiratory: No Cough, No Dyspnea Cardiac: No Chest Pain, No Edema, No Syncope Abdominal/Gastrointestinal: No Abdominal Pain, No Nausea, No Vomiting, No Diarrhea Genitourinary Symptoms: No Dysuria Musculoskeletal: No Back Pain, No Neck Pain Skin: No Symptoms Neurological: Other (patient with frequent rrandom movements of her hands( akathesis)), No Dizziness, No Focal Weakness, No Gait Changes, No Headache, No Irritability, No Lethargy, No Paralysis, No Parasthesia, No Seizure, No Sensory Changes, No Speech Changes, No Tics, No Tremors, No Vertigo - Past Medical History Pertinent Past Medical History: Yes Neurological History: No Pertinent History, Migraines, Peripheral Neuropathy ENT History: No Pertinent History Cardiac History: Hypertension, Other Respiratory History: Asthma, Pneumonia Endocrine Medical History: No Pertinent History Musculoskeletal History: No Pertinent History GI Medical History: Gallbladder Disease, Irritable Bowel, Ulcer History: No Pertinent History Psycho-Social History: Anxiety Female Reproductive Disorders: No Pertinent History Other Medical History: Nodules on lung, anemia, hypokalemia, marquis - Past Surgical History Past Surgical History: Yes Neuro Surgical History: No Pertinent History Cardiac: Cardiac Catheterization Respiratory: No Pertinent History Gastrointestinal: No Pertinent History Genitourinary: No Pertinent History Musculoskeletal: No Pertinent History Female Surgical History: Tubal Ligation Other Surgical History: cervical CA 95, 06, tubal and ablation 2011, back stimulator - Social History Smoking Status: Current every day smoker How long have you smoked: 28 years Exposure to second hand smoke: Yes Drug Use: none Patient Lives Alone: No - Female History Hx Last Menstrual Period: unk Hx Now: No (tubal) - Nursing Vital Signs Nursing Vital Signs: Initial Vital Signs Temperature 97.8 F 03/04/19 09:40 Pulse Rate 77 03/04/19 09:40 Respiratory Rate 20 03/04/19 09:40 Blood Pressure 169/112 03/04/19 09:40 O2 Sat by Pulse Oximetry 92 L 03/04/19 09:40 Pain Scale Pain Intensity 0 - Physical Exam General Appearance: no apparent distress, alert, other (well-developed white female, alert oriented x3 frequent and constant movement of her hands) Eye Exam: PERRL/EOMI, eyes nml inspection Ears, Nose, Throat Exam: normal ENT inspection, TMs normal, pharynx normal, moist mucous membranes Neck Exam: normal inspection, non-tender, supple, full range of motion Respiratory Exam: normal breath sounds, lungs clear, No respiratory distress Cardiovascular Exam: regular rate/rhythm, normal heart sounds, normal peripheral pulses, capillary refill <2 sec Gastrointestinal/Abdomen Exam: soft, normal bowel sounds, No tenderness, No mass Back Exam: normal inspection, normal range of motion, No CVA tenderness, No vertebral tenderness Extremity Exam: normal inspection, normal range of motion, pelvis stable Neurologic Exam: alert, oriented x 3, cooperative, 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, normal mood/affect, nml cerebellar function, nml station & gait, sensation nml, other (frequent and constant random movement of her hands and arms waiting them around), No motor deficits Skin Exam: normal color, warm, dry, No rash Lymphatic Exam: No adenopathy SpO2 Interpretation: normal (92%) SpO2: 92 - Course Nursing assessment & vital signs reviewed: Yes EKG Interpreted by Me: RATE (75 bpm), NORMAL QRS, Other (EKG: Sinus arrhythmia with a large amount of artifact 75 beats per minute normal axis no acute ST or T wave changes.) Ordered Tests: Active Orders 24 hr Category Date Time Status EKG-ER Only STAT Care 03/04/19 09:59 Active IV Insertion STAT Care 03/04/19 09:59 Active AMYLASE Stat Lab 03/04/19 10:00 Completed CBC W DIFF Stat Lab 03/04/19 10:00 Completed CMP Stat Lab 03/04/19 10:00 Completed CULTURE,URINE Stat Lab 03/04/19 10:00 Received ETHYL ALCOHOL Stat Lab 03/04/19 10:00 Completed HCG QUALITATIVE,SERUM Stat Lab 03/04/19 10:00 Completed LIPASE Stat Lab 03/04/19 10:00 Completed UA W/RFX UR CULTURE Stat Lab 03/04/19 10:00 Completed Urine Triage Profile Stat Lab 03/04/19 10:00 Completed Peak Expiratory Flow Rate ONCE RT 03/04/19 11:26 Active Respiratory Therapy Assessment DAILY RT 03/04/19 11:26 Active Medication Summary Generic Name Dose Route Start Last Admin Trade Name Freq PRN Reason Stop Dose Admin Sodium Chloride 1,000 mls @ 100 mls/hr 03/04/19 10:00 03/04/19 10:22 Sodium Chloride 0.9% 1000 Ml IV 04/03/19 09:59 100 mls/hr .Q10H SLAVA Administration Discontinued Medications Generic Name Dose Route Start Last Admin Trade Name Freq PRN Reason Stop Dose Admin Albuterol Sulfate 2.5 mg 03/04/19 11:11 03/04/19 11:21 Proventil 2.5 Mg/3 Ml Neb IH 03/04/19 11:12 2.5 mg STAT ONE Administration Albuterol Sulfate Confirm 03/04/19 11:20 Proventil 2.5 Mg/3 Ml Neb Administered 03/04/19 11:21 Dose 2.5 mg IH .STK-MED ONE Diphenhydramine HCl 25 mg 03/04/19 10:38 03/04/19 10:45 Benadryl 50 Mg/Ml IV 03/04/19 10:39 25 mg STAT ONE Administration Diphenhydramine HCl Confirm 03/04/19 10:41 Benadryl 50 Mg/Ml Administered 03/04/19 10:42 Dose 50 mg .ROUTE .STK-MED ONE Lorazepam 1 mg 03/04/19 10:33 03/04/19 10:39 Ativan 2 Mg/1 Ml Vial IV 03/04/19 10:34 Not Given STAT ONE Lorazepam 0.5 mg 03/04/19 10:55 03/04/19 11:04 Ativan 2 Mg/1 Ml Vial IV 03/04/19 10:56 0.5 mg STAT ONE Administration Lorazepam Confirm 03/04/19 11:01 Ativan 2 Mg/1 Ml Vial Administered 03/04/19 11:02 Dose 2 mg .ROUTE .STK-MED ONE Ondansetron HCl 4 mg 03/04/19 11:13 03/04/19 11:16 Zofran 4 Mg/2 Ml Vial IV 03/04/19 11:14 4 mg STAT ONE Administration Ondansetron HCl Confirm 03/04/19 11:16 Zofran 4 Mg/2 Ml Vial Administered 03/04/19 11:17 Dose 4 mg .ROUTE .STK-MED ONE Lab/Rad Data: Laboratory Result Diagrams 03/04/19 10:00 03/04/19 10:00 Laboratory Results 03/04/19 03/04/19 03/04/19 Range/Units 10:00 10:00 10:00 WBC (4.0-10.5) K/mm3 RBC (4.1-5.4) M/mm3 Hgb (12.0-16.0) gm/dl Hct (35-47) % MCV (78-100) fl MCH (26-32) pg MCHC (32-36) g/dl RDW (11.5-14.0) % Plt Count (150-450) K/mm3 MPV (6-9.5) fl Gran % (36.0-66.0) % Eos # (Auto) (0-0.5) Absolute Lymphs (auto) (1.0-4.6) Absolute Monos (auto) (0.0-1.3) Lymphocytes % (24.0-44.0) % Monocytes % (0.0-12.0) % Eosinophils % (0.00-5.0) % Basophils % (0.0-0.4) % Absolute Granulocytes (1.4-6.9) Basophils # (0-0.4) Sodium (137-145) mmol/L Potassium (3.5-5.1) mmol/L Chloride (98-107) mmol/L Carbon Dioxide (22-30) mmol/L Anion Gap (5-15) MEQ/L BUN (7-17) mg/dL Creatinine (0.52-1.04) mg/dL Estimated GFR ML/MIN Glucose (74-106) mg/dL Calcium (8.4-10.2) mg/dL Total Bilirubin (0.2-1.3) mg/dL AST (14-36) U/L ALT (0-35) U/L Alkaline Phosphatase (38-126) U/L Serum Total Protein (6.3-8.2) g/dL Albumin (3.5-5.0) g/dL Amylase (30-110) U/L Lipase (23-300) U/L Serum , Qual (Negative) Urine Color ROJAS (YELLOW) Urine Appearance CLOUDY (CLEAR) Urine pH 5.0 (5-6) Ur Specific [place] 1.028 (1.005-1.025) Urine Protein 100 (Negative) Urine Ketones SMALL (NEGATIVE) Urine Blood NEGATIVE (0-5) Chris/ul Urine Nitrite NEGATIVE (NEGATIVE) Urine Bilirubin MODERATE (NEGATIVE) Urine Urobilinogen 4 (0-1) mg/dL Ur Leukocyte Esterase NEGATIVE (NEGATIVE) Urine WBC (Auto) 3-5 (0-5) /HPF Urine RBC (Auto) NONE (0-2) /HPF U Epithel Cells (Auto) FEW (FEW) /HPF Urine Bacteria (Auto) MANY (NEGATIVE) /HPF Urine Mucus (Auto) MANY (NEGATIVE) /HPF Urine Culture Reflexed ORDERED SEPARATELY (NO) Urine Glucose NEGATIVE (NEGATIVE) mg/dL Urine Opiates Level NEGATIVE (NEGATIVE) Ur Methadone NEGATIVE (NEGATIVE) Urine Barbiturates NEGATIVE (NEGATIVE) Ur Phencyclidine (PCP) NEGATIVE (NEGATIVE) Urine Amphetamine NEGATIVE (NEGATIVE) U Benzodiazepine Level POSITIVE (NEGATIVE) Urine Cocaine NEGATIVE (NEGATIVE) Urine Marijuana (THC) NEGATIVE (NEGATIVE) Ethyl Alcohol < 10 (0-10) mg/dL 03/04/19 03/04/19 03/04/19 Range/Units 10:00 10:00 10:00 WBC 13.8 H (4.0-10.5) K/mm3 RBC 2.92 L (4.1-5.4) M/mm3 Hgb 11.5 L (12.0-16.0) gm/dl Hct 33.0 L (35-47) % MCV 113.0 H (78-100) fl MCH 39.3 H (26-32) pg MCHC 34.8 (32-36) g/dl RDW 14.3 H (11.5-14.0) % Plt Count 306 (150-450) K/mm3 MPV 10.0 H (6-9.5) fl Gran % 85.5 H (36.0-66.0) % Eos # (Auto) 0.01 (0-0.5) Absolute Lymphs (auto) 1.31 (1.0-4.6) Absolute Monos (auto) 0.68 (0.0-1.3) Lymphocytes % 9.5 L (24.0-44.0) % Monocytes % 4.9 (0.0-12.0) % Eosinophils % 0.1 (0.00-5.0) % Basophils % 0.0 (0.0-0.4) % Absolute Granulocytes 11.77 H (1.4-6.9) Basophils # 0 (0-0.4) Sodium 135 L (137-145) mmol/L Potassium 3.3 L (3.5-5.1) mmol/L Chloride 94 L (98-107) mmol/L Carbon Dioxide 27 (22-30) mmol/L Anion Gap 16.8 H (5-15) MEQ/L BUN 12 (7-17) mg/dL Creatinine 0.49 L (0.52-1.04) mg/dL Estimated GFR > 60.0 ML/MIN Glucose 78 (74-106) mg/dL Calcium 8.5 (8.4-10.2) mg/dL Total Bilirubin 0.90 (0.2-1.3) mg/dL AST 46 H (14-36) U/L ALT 23 (0-35) U/L Alkaline Phosphatase 192 H (38-126) U/L Serum Total Protein 6.7 (6.3-8.2) g/dL Albumin 3.0 L (3.5-5.0) g/dL Amylase 45 (30-110) U/L Lipase < 10 L (23-300) U/L Serum , Qual NEGATIVE (Negative) Urine Color (YELLOW) Urine Appearance (CLEAR) Urine pH (5-6) Ur Specific [place] (1.005-1.025) Urine Protein (Negative) Urine Ketones (NEGATIVE) Urine Blood (0-5) Chris/ul Urine Nitrite (NEGATIVE) Urine Bilirubin (NEGATIVE) Urine Urobilinogen (0-1) mg/dL Ur Leukocyte Esterase (NEGATIVE) Urine WBC (Auto) (0-5) /HPF Urine RBC (Auto) (0-2) /HPF U Epithel Cells (Auto) (FEW) /HPF Urine Bacteria (Auto) (NEGATIVE) /HPF Urine Mucus (Auto) (NEGATIVE) /HPF Urine Culture Reflexed (NO) Urine Glucose (NEGATIVE) mg/dL Urine Opiates Level (NEGATIVE) Ur Methadone (NEGATIVE) Urine Barbiturates (NEGATIVE) Ur Phencyclidine (PCP) (NEGATIVE) Urine Amphetamine (NEGATIVE) U Benzodiazepine Level (NEGATIVE) Urine Cocaine (NEGATIVE) Urine Marijuana (THC) (NEGATIVE) Ethyl Alcohol (0-10) mg/dL - Progress Progress: improved Progress Note: 03/04/19 10:26 This is a 43-year-old white female with history of migraines, peripheral neuropathy, asthma, gallbladder disease, ulcers, anxiety, heart catheter in the past who states she has a weak heart muscle. Patient states that she has been trying to stop alcohol and that approximately 2 weeks ago patient was placed on a clonidine patch. Patient states that she woke up this morning and she was having random movements of her arms patient arrives with the random and constant movements of her arms. She is not having tremors She states she last drank alcohol 4-5 days ago. Patient has a ongoing prescription for Xanax which she states she only takes once or twice a day and she has not stopped his. She denies any illicit drugs. Patient has had a rather extensive neurologic workup in the past and has seen Dr. Zamora. Patient has been seen in this emergency room in the past and is noted to have hypokalemia. 03/04/19 11:11 The patient's nurse tells me that the patient's O2 sats are down to 90-91. Patient with a few wheezes uses a nebulizer at home but last used it yesterday. Will give patient an albuterol treatment 03/04/19 11:20 patient's potassium level is 3.3 will have patient increase her dietary potassium at home. Patient appears to be improved after Benadryl 25 mg IV. And Ativan 0.5 mg IV. Blood pressure is improving. Patient has had a clonidine patch placed on Saturday she has been told by her psychiatrist to uses weekly. Patient is on Labetolol. Will plan to have patient continue Benadryl 25 mg every 6 hours as needed for 2- 3 days. She is to take her Xanax as prescribed by her psychiatrist. She is to contact her psychiatrist for continuing refills of her clonidine. She is also to use her nebulizer at home as prescribed by her family . - Departure Departure Disposition: Home Clinical Impression: Medication side effect, Anxiety, Akathisia Condition: Fair Critical Care Time: No Referrals: JUSTUS ALFARO [Primary Care Provider] - Additional Instructions: Return home. Benadryl 25 mg orally every 6 hours as needed for 2-3 days. Xanax as prescribed by your psychiatrist. Followup with your psychiatrist/family medical doctor. Increase dietary potassium. Use your albuterol nebulizer as prescribed by your family doctor as needed for wheezing or shortness of breath. Return for acute distress or for severe symptoms. Prescriptions: Albuterol 2.5 mg/3 ml Neb [Proventil 2.5 mg/3 ml Neb] 2.5 mg IH Q4-6HPRN PRN #20 neb PRN Reason: shortness of breath, wheezing
[2019-03-04 10:27] LABS: Mean Corpuscular Hemoglobin 39.3 pg (26-32)
[2019-03-04 10:31] LABS: ALKALINE PHOSPHATASE 192 U/L (38-126); AMYLASE 45 U/L (30-110); ANION GAP 16.8 MEQ/L (5-15); BLOOD UREA NITROGEN 12 mg/dL (7-17); CHLORIDE 94 mmol/L (98-107); Calcium 8.5 mg/dL (8.4-10.2); Carbon Dioxide 27 mmol/L (22-30); Creatinine 1 0.49 mg/dL (0.52-1.04); Glucose 78 mg/dL (74-106); LIPASE < 10 U/L (23-300); Potassium 3.3 mmol/L (3.5-5.1); SGOT/AST 46 U/L (14-36); SGPT/ALT 23 U/L (0-35); SODIUM 135 mmol/L (137-145); Total Protein 6.7 g/dL (6.3-8.2)
[2019-03-04] MEDS ORDERED: Ativan 2 MG/1 ML VIAL IV ONE ×2 (10:33→10:55)
[2019-03-04 10:36] LABS: Appearance CLOUDY (CLEAR); Bacteria MANY /HPF (NEGATIVE); Bilirubin MODERATE (NEGATIVE); Blood NEGATIVE Ery/ul (0-5); Epithelial Cells FEW /HPF (FEW); Glucose NEGATIVE (NEGATIVE); Ketones SMALL (NEGATIVE); Leukocyte Esterase NEGATIVE (NEGATIVE); Mucus MANY /HPF (NEGATIVE); Nitrite NEGATIVE (NEGATIVE); Protein,Urine Dip 100 (Negative); Specific Gravity 1.028 (1.005-1.025); Urobilinogen 4 mg/dL (0-1)
[2019-03-04] MEDS ORDERED: BENADRYL 50 MG/ML IV ONE (10:38)
[2019-03-04] MEDS ORDERED: BENADRYL 50 MG/ML ONE (10:41)
[2019-03-04 10:45] LABS: Amphetamine,Urine NEGATIVE (NEGATIVE); Barbiturate,Urine NEGATIVE (NEGATIVE); Benzodiazepine,Urine POSITIVE (NEGATIVE); Cocaine,Urine NEGATIVE (NEGATIVE); Methadone,Urine NEGATIVE (NEGATIVE); Opiate,Urine NEGATIVE (NEGATIVE); PCP,Urine NEGATIVE (NEGATIVE); THC,Urine NEGATIVE (NEGATIVE)
[2019-03-04] MEDS ORDERED: Ativan 2 MG/1 ML VIAL ONE (11:01)
[2019-03-04] MEDS ORDERED: PROVENTIL 2.5 MG/3 ML NEB IH ONE ×2 (11:11→11:20)
[2019-03-04] MEDS ORDERED: Zofran 4 MG/2 ML VIAL IV ONE (11:13)
[2019-03-04] MEDS ORDERED: Zofran 4 MG/2 ML VIAL ONE (11:16)
[2019-03-04 11:52] VITALS: BP 121/90; PULSE 64; O2SAT 94
== END 2019-03-04 11:51 | disposition home or self-care (01) ==
LOC: ED 09:34
DX: F41.9 Anxiety disorder, unspecified (principal); G25.71 Drug induced akathisia; T46.5X5A Adverse effect of other antihypertensive drugs, initial encounter; G62.9 Polyneuropathy, unspecified; Z79.899 Other long term (current) drug therapy
CPT/HCPCS: 36000; 36415; 80053; 80307; 81001; 81025; 82150; 82962; 83690; 85025; 87086; 93005; 94150; 94640; 96360; 96374; 96375; 99284; J1200; J2060; J2405; J7609; A9270-GY; G0480

== ENCOUNTER 2019-04-11 11:37 | Emergency (ER) | payer BC | END 2019-04-11 12:01 | disposition left against medical advice (07) | LOC: ED 11:37 | DX: R60.0 Localized edema (principal) | CPT/HCPCS: 99282; G0463 ==